=== PATIENT | female | born 1945 | race Caucasian/White ===

== ENCOUNTER 2018-03-26 19:43 | Inpatient (IN) | payer OTHER ==
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
[2018-03-26 23:12] LABS: PLATELET COUNT 329 10^3/uL (150-400)
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
--- NOTE | 2018-03-27 11:03 | ASMTTCLDSP ---
TLC Discharge Disposition Disposition: Answers: Admit Disposition Notes: Notes: Admit 3N. Discharge Concerns/Recommendations: Notes: Pt declined and appeared unable to complete BDI/BSS questionnaires. In consultation with [facility] ED physician, Christian Bailey MD, and on-call psychiatrist, Alfa Hollis MD, both concurred that pt appears to meet 27-65 criteria requiring psychiatric hospitalization as pt appears to be gravely disabled due to a mental illness condition. Pt was given but declined to sign the 3N prohibited belongings list while in the ED. Was patient given the Answers: Yes Inpatient Behavioral Health Prohibited Belongings List while in the ED? For inpatient Alfa Hollis MD admission, the following psychiatrist agreed to accept patient for admission to Behavioral Health ([facility]): Type of Hold: Answers: M1/72-hour Hold Hold initiated by: Answers: Other Notes: [facility] Clinician Date Signed: 03/27/2018 11:02 AM Electronically Signed By:Eren Chester
[2018-03-27] MEDS ORDERED: MAGNESIUM HYDROXIDE 30 ML UDCUP PO PRN (14:40)
[2018-03-27] MEDS ORDERED: LORazepam 0.5 MG TAB PO PRN (14:40)
[2018-03-27] MEDS ORDERED: ACETAMINOPHEN 325 MG TAB PO PRN (14:40)
[2018-03-27] MEDS ORDERED: OLANZapine DISINTEGR 10 MG TAB PO PRN (14:40)
[2018-03-27] MEDS ORDERED: MAG HYDROX/AL HYDROX/SIMETH 30 ML UDCUP PO PRN (14:40)
[2018-03-27] MEDS ORDERED: OLANZapine 10 MG/2 ML VIAL ONE (16:57)
[2018-03-27] MEDS ORDERED: LORazepam 2 MG/ML INJ ONE (16:58)
[2018-03-27] MEDS: OLANZapine 10 MG/2 ML VIAL IM PRN (17:10)
[2018-03-27] MEDS: LORazepam 2 MG/ML INJ IM PRN (17:10)
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
[2018-03-28] MEDS: LORazepam 2 MG/ML INJ IM PRN (11:03)
[2018-03-28] MEDS: OLANZapine 10 MG/2 ML VIAL IM PRN (11:03)
[2018-03-28] MEDS: NICOTINE POLACRILEX 2 MG GUM B PRN ×3 (11:38→17:59)
--- NOTE | 2018-03-28 16:17 | PDMN ---
Medical Necessity Medical necessity: Pt meets IP criteria per & FOR[facility] B-004-IP; est los >2 mn for eval/tx of bipolar disorder w/recent manic episode, severe psychosis & possible schizoaffective disorder; pt on M1 hold & is a safety risk to herself & others; admit for further monitoring, safety, stabilization & med management; per H&P & order 03/27/18
--- NOTE | 2018-03-28 16:47 | PDHOSCONS ---
History and Physical - Chief Complaint Acute disorganized behavior - History of Present Illness Primary care provider: None currently, previously Dr. Altamirano Primary mental health: Patient reports that she previously had a provider in [place] HPI: 73-year-old female presents with acute disorganized behavior characterized as nonlinear, tangential thought process with associated paranoid delusions, including the patient reporting that her bones have been tapped and that she needs assistance with getting a "clean" phone. The onset of her symptoms are at least on the day prior to this presentation, duration has been persistent and fluctuating thereafter. The patient reportedly presented to the [facility] crisis center and she was placed on M1 hold after she demonstrated the aforementioned behavior. The patient was seen by emergency department staff as well as Dr. Greene, and the patient's agitation escalated and fluctuated during these encounters. The patient does endorse that she has been experiencing increased amount of stress and has reportedly increased her distress regarding her phone. She reports that she chronically has right mid abdomen discomfort, which she believes no one has been able to diagnose in the past, but she has undergone exploratory laparotomy. Any additional history is exceptionally difficult to gather from the patient, as her associations are loose, her thought process is difficult to follow, and the patient verbalizes stream of consciousness which does not permit her regular redirection. History Information - Allergies/Home Medication List Allergies/Adverse Reactions: No Known Allergies Allergy (Unverified 03/27/18 16:59) Home Medications: Unobtainable 03/27/18 [Last Taken Unknown] I have personally reviewed and updated: family history, medical history, social history, surgical history - Past Medical History Additional medical history: Reported bipolar disease. Small-bowel obstruction and ileus. Osteoarthritis in the right knee, sees a chiropractor. Cholelithiasis. 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 - Surgical History Additional surgical history: Reported exploratory laparotomy - Family History Additional family history: Patient reports cancer diffusely throughout her family history but she is unclear whether colon cancer was a known diagnosis - Social History Smoking Status: Current every day smoker Alcohol Use: None Drug Use: None Additional social history: Patient reports that she has resided in [place] for 30 years, she attempts to eat what she considers a healthy diet which includes smoothies, fiber, coffee, salad Review of Systems Review of Systems: ROS: 10pt was reviewed & negative except for what was stated in HPI & below Neurological: Reports: other (Tangential thought process, paranoid delusions) Physical Exam Physical Exam: Temp Pulse Resp BP Pulse Ox 36.4 C 70 16 123/60 H 99 03/27/18 19:00 03/27/18 19:00 03/27/18 19:00 03/27/18 19:00 03/27/18 19:00 Constitutional: no apparent distress, not in pain, chronically ill appearing, uncomfortable (Right abdomen) Eyes: PERRL, anicteric sclera, EOMI Ears, Nose, Mouth, Throat: moist mucous membranes, hearing normal, ears appear normal, no oral mucosal ulcers Cardiovascular: regular rate and rhythym, no murmur, rub, or gallop, No edema Respiratory: no respiratory distress, no rales or rhonchi, clear to auscultation Gastrointestinal: normoactive bowel sounds, soft, non-tender abdomen, No guarding, No distension Musculoskeletal: other (Right knee with band, does not allow me to exam) Neurologic: sensation intact bilaterally, No weakness, No asterixes, No facial droop Psychiatric: agitated, poor insight, other (Tangential thought process, delusional, non linear comma flat affect) Lab Data & Imaging Review 03/26/18 20:03 03/26/18 20:03 WBC 6.69 10^3/uL (3.80-9.50) 03/26/18 20:03 RBC 4.89 10^6/uL (4.18-5.33) 03/26/18 20:03 Hgb 14.3 g/dL (12.6-16.3) 03/26/18 20:03 Hct 42.9 % (38.0-47.0) 03/26/18 20:03 MCV 87.7 fL (81.5-99.8) 03/26/18 20:03 MCH 29.2 pg (27.9-34.1) 03/26/18 20:03 MCHC 33.3 g/dL (32.4-36.7) 03/26/18 20:03 RDW 12.7 % (11.5-15.2) 03/26/18 20:03 Plt Count 329 10^3/uL (150-400) 03/26/18 20:03 MPV 9.8 fL (8.7-11.7) 03/26/18 20:03 Neut % (Auto) 40.6 % (39.3-74.2) 03/26/18 20:03 Lymph % (Auto) 52.3 % (15.0-45.0) H 03/26/18 20:03 [place] % (Auto) 5.4 % (4.5-13.0) 03/26/18 20:03 Eos % (Auto) 1.0 % (0.6-7.6) 03/26/18 20:03 Baso % (Auto) 0.6 % (0.3-1.7) 03/26/18 20:03 Nucleat RBC Rel Count 0.0 % (0.0-0.2) 03/26/18 20:03 Absolute Neuts (auto) 2.71 10^3/uL (1.70-6.50) 03/26/18 20:03 Absolute Lymphs (auto) 3.50 10^3/uL (1.00-3.00) H 03/26/18 20:03 Absolute Monos (auto) 0.36 10^3/uL (0.30-0.80) 03/26/18 20:03 Absolute Eos (auto) 0.07 10^3/uL (0.03-0.40) 03/26/18 20:03 Absolute Basos (auto) 0.04 10^3/uL (0.02-0.10) 03/26/18 20:03 Absolute Nucleated RBC 0.00 10^3/uL (0-0.01) 03/26/18 20:03 Immature Gran % 0.1 % (0.0-1.1) 03/26/18 20:03 Immature Gran # 0.01 10^3/uL (0.00-0.10) 03/26/18 20:03 Sodium 138 mEq/L (135-145) 03/26/18 20:03 Potassium 3.3 mEq/L (3.3-5.0) 03/26/18 20:03 Chloride 102 mEq/L (97-110) 03/26/18 20:03 Carbon Dioxide 25 mEq/l (22-31) 03/26/18 20:03 Anion Gap 11 mEq/L (8-16) 03/26/18 20:03 BUN 19 mg/dL (7-23) 03/26/18 20:03 Creatinine 0.6 mg/dL (0.6-1.0) 03/26/18 20:03 Estimated GFR > 60 03/26/18 20:03 Glucose 120 mg/dL (70-100) H 03/26/18 20:03 Hemoglobin A1c 6.5 % (4.0-6.0) H 03/27/18 20:03 Estim Average Glucose 140 mg/dL (68-126) H 03/27/18 20:03 Calcium 9.3 mg/dL (8.5-10.4) 03/26/18 20:03 Triglycerides 115 mg/dL (35-135) 03/27/18 20:03 Cholesterol 214 mg/dL (140-220) 03/27/18 20:03 Cholesterol Risk Factr 0.6 (0.2-1.0) 03/27/18 20:03 LDL Cholesterol, Calc 129 mg/dL (80-100) H 03/27/18 20:03 LDL Risk Factor 0.8 (0.2-1.0) 03/27/18 20:03 VLDL Cholesterol 23 mg/dL (8-25) 03/27/18 20:03 Non-HDL Cholesterol 152 mg/dL (90-129) H 03/27/18 20:03 HDL Cholesterol 62 mg/dL (40-85) 03/27/18 20:03 LDL/HDL Ratio 2.08 RATIO (1.00-3.22) 03/27/18 20:03 Cholesterol/HDL Ratio 3.45 RATIO (1.00-4.44) 03/27/18 20:03 Urine Color YELLOW 03/26/18 22:40 Urine Appearance HAZY 03/26/18 22:40 Urine pH 7.0 (5.0-7.5) 03/26/18 22:40 Ur Specific [place] 1.014 (1.002-1.030) 03/26/18 22:40 Urine Protein NEGATIVE (NEGATIVE) 03/26/18 22:40 Urine Ketones NEGATIVE (NEGATIVE) 03/26/18 22:40 Urine Blood NEGATIVE (NEGATIVE) 03/26/18 22:40 Urine Nitrate NEGATIVE (NEGATIVE) 03/26/18 22:40 Urine Bilirubin NEGATIVE (NEGATIVE) 03/26/18 22:40 Urine Urobilinogen NEGATIVE EU (0.2-1.0) 03/26/18 22:40 Ur Leukocyte Esterase 1+ (NEGATIVE) H 03/26/18 22:40 Urine RBC 1-3 /hpf (0-3) 03/26/18 22:40 Urine WBC 1-3 /hpf (0-3) 03/26/18 22:40 Ur Epithelial Cells TRACE /lpf (NONE-1+) 03/26/18 22:40 Amorphous Sediment PRESENT /hpf (NONE-1+) 03/26/18 22:40 Urine Bacteria 1+ /hpf (NONE SEEN) H 03/26/18 22:40 Urine Glucose NEGATIVE (NEGATIVE) 03/26/18 22:40 Urine Opiates Screen NEGATIVE (NEGATIVE) 03/26/18 22:40 Urine Barbiturates NEGATIVE (NEGATIVE) 03/26/18 22:40 Ur Phencyclidine Scrn NEGATIVE (NEGATIVE) 03/26/18 22:40 Ur Amphetamine Screen NEGATIVE (NEGATIVE) 03/26/18 22:40 U Benzodiazepines Scrn NEGATIVE (NEGATIVE) 03/26/18 22:40 [employer] < 0.2 mEq/L (0.6-1.2) L 03/26/18 20:03 Urine Cocaine Screen NEGATIVE (NEGATIVE) 03/26/18 22:40 U Marijuana (THC) Screen NEGATIVE (NEGATIVE) 03/26/18 22:40 Ethyl Alcohol < 10 mg/dL (0-10) 03/26/18 20:03 Assessment & Plan Assessment: 73-year-old female presenting with grave disability secondary to paranoid delusions Plan: 1. Paranoid delusions. Acute, reviewed outside records including 03/26/18 emergency department report by Madan Bustos, emergency department provider, he reports that patient was placed on M1 hold after presentation from the crisis Center -defer workup, diagnosis, treatment primary mental health team -of note, patient is exceptionally difficult to retrieve a medical history from or provide a thorough examination of secondary to her active mental health issue and if additional medical issues are uncovered as the patient becomes more linear, please contact the hospitalist service so that we can be of more assistance 2. Diabetes mellitus type 2. Hemoglobin A1c 6.5%, patient has diagnosis of diabetes but she is unaware of this -would recommend holding on initiating metformin which can exacerbate abdominal symptoms, as the patient clearly perseverates on her chronic abdominal symptoms and it may be difficult to delineate any acute once from her chronic complaints , particularly since she is a new patient on this unit -I would recommend the patient have established outpatient primary care after she is stabilized from a mental standpoint where she can be evaluated for initiation of metformin -given patient's LDL of 129, a statin may also be a beneficial for primary CAD prevention, but at the present time, the patient is so destabilize from a mental standpoint that initiating another medication to which she will most likely not adhere is probably of low value, and recommend that she have this issue readdressed when she establishes primary care -patient will most likely benefit from aspirin 81 mg for primary CAD prevention as well, but given her aforementioned issues, would recommend holding on this until she follows up as well 3. Reported diagnosis of lupus. Potentially chronic, patient currently has no evidence of nephritis, no clearly visible physical exam evidence of active disease, although the patient does not permit me to do a more thorough physical exam -if additional issues uncovered during this hospitalization, please reconsult with the hospitalist service otherwise recommend that she readdress this is a potential chronic issue with her new outpatient primary care provider -once she stabilizes psychiatrically, if patient is able to provide the name and contact of her previous telecommunications line installer for she received this diagnosis, the very helpful Hospital [facility] will sign off on this patient, please contact through if further assistance is required.
--- NOTE | 2018-03-28 17:18 | SOAPPROG ---
SOAP Progress Note Assessment/Plan: Assessment: Plan: 03/28/18 17:18 Mood: Pt remains manic and psychotic. Will continue E-meds due to severity of ongoing agitation. Will start scheduled Zyprexa at HS. Subjective: Pt seen on numerous occasions in the milieu today. She interrogated me re: my educational hx and then told me I am not qualified to be a doctor or treat her. She continues to sit in day room and talk loudly to herself and others in general. Themes are antagonistic and critical of staff. She continues to repeat out loud that she doesn't have Bipolar illness and doesn't want any medications. She required E-meds yesterday and then again this morning for these agitated and agitating behaviors. She responded well to Zyprexa and Ativan. Objective: Vital Signs Temp Pulse Resp BP Pulse Ox 36.4 C 70 16 123/60 H 99 03/27/18 19:00 03/27/18 19:00 03/27/18 19:00 03/27/18 19:00 03/27/18 19:00 - Time Spent With Patient Time Spent With Patient: 25" ICD10 Worksheet Patient Problems: Problems Problem Status Onset Encounter for medical clearance for patient hold Acute
[2018-03-28] MEDS ORDERED: LORazepam 2 MG/ML INJ IM PRN (17:19)
[2018-03-28] MEDS ORDERED: OLANZapine 10 MG/2 ML VIAL IM PRN (17:19)
[2018-03-28] MEDS ORDERED: OLANZapine DISINTEGR 10 MG TAB PO SCH (21:00)
[2018-03-29] MEDS: NICOTINE POLACRILEX 2 MG GUM B PRN (14:40)
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
--- NOTE | 2018-03-29 18:30 | SOAPPROG ---
SOAP Progress Note Assessment/Plan: Assessment: Plan: 03/28/18 17:18 Mood: Pt remains manic and psychotic. Will continue E-meds due to severity of ongoing agitation. Will start scheduled Zyprexa at HS. 03/29/18 18:30 Mood: Pt is much improved. Will proceed as before, convert to voluntary. Subjective: Pt seen, discussed with staff. Reports feeling "frustrated and upset that you don't know what you're doing and you can't understand my special and unique needs." She demanded "at least forty minutes" of my time to which I offered 20 minutes. We ultimately talked for 50" but were able to establish an alliance based on: her being able to sign in voluntary, decreasing the Zyprexa to 5mg and allowing PRN lorazepam. I agreed to help her fax some information for a new lease. Objective: Vital Signs Temp Pulse Resp BP Pulse Ox 36.4 C 64 16 125/57 H 96 03/29/18 06:00 03/29/18 06:00 03/29/18 06:00 03/29/18 06:00 03/29/18 06:00 - Time Spent With Patient Time Spent With Patient: 55" ICD10 Worksheet Patient Problems: Problems Problem Status Onset Encounter for medical clearance for patient hold Acute
[2018-03-29] MEDS: OLANZapine DISINTEGR 5 MG TAB PO SCH ×2 (22:09→22:19)
[2018-03-30 07:07] VITALS: BP 189/76
[2018-03-30] MEDS: NICOTINE POLACRILEX 2 MG GUM B PRN (09:51)
--- NOTE | 2018-03-30 13:39 | BDS ---
[f rep st] BEHAVIORAL HEALTH DISCHARGE SUMMARY REASON FOR ADMISSION: Patient is a 73-year-old female who was admitted from the emergency department. She presented to the walk-in clinic through [facility], was agitated. She told them that she was bipolar, needed help, but then was refusing treatment. She was evaluated by the victim's advocate through [facility]. She was a very unreliable historian, very tangential, loose, disorganized, gave a very unclear history of course of events, but the walk-in clinic noted that the patient was paranoid, delusional. She told them that "doctors just want to steal my money." She also told them that she thought that people were tapping her phone and she does not feel safe. She was quite disruptive. They called the [facility] who transported the patient to the ED where she was evaluated by JOSE and admitted to the inpatient behavioral health unit. ADMITTING DIAGNOSES: 1. Bipolar disorder, most recent episode manic, severe with psychosis, rule out schizoaffective disorder, bipolar type. 2. Possible homelessness, chronic illness, currently untreated. PHYSICAL EXAMINATION: The admitting physical examination was done by Dr. Srikanth Terrazas. Please see his H and P for more details. There were no acute physical findings, although the patient was very resistant to allowing Dr. Terrazas to evaluate her and was not very forthcoming with his questions. ADMISSION LABS: Done in the [facility] ED. Her white cell count was 6.69, hemoglobin 14.3, hematocrit 42.9, platelet count 329. Sodium was 138, potassium 3.3, chloride 102, BUN 19, creatinine 0.6, glucose was 120. Hemoglobin A1c was elevated at 6.5 kg. Calcium was 9.3, triglycerides were 115 , cholesterol was 214, LDL cholesterol was elevated at 129, non-HDL cholesterol was elevated at 152, HDL cholesterol was 62. Her urinalysis was positive for 1 + urine bacteria and 1+ leukocyte esterase. Her urine culture came back positive for 5 different colony types, which were all determined to be normal urinary tract and skin murphy. Her urine drug screen was negative for all drugs of abuse. Ethyl alcohol was undetected. [place] level was also undetected. HOSPITAL COURSE: The patient was admitted and she was given emergency eMeds because she was severely agitated and physically aggressive. On 03/28/2018, Dr. Hollis saw the patient and decided to start scheduled Zyprexa 10 mg p.o. at bedtime with a p.r.n. 10 mg q.6 hours p.r.n. backup as needed for agitation and psychosis. When he met with her on the inpatient unit, patient was very argumentative. She was talking rapidly, had pressured speech, is difficult to interrupt the patient. The patient would talk very loudly and talk over Dr. Hollis. She also insisted that Dr. Hollis was not "qualified to be a doctor" and said that she did not want him to treat her. She was observed in the day room talking loudly to herself. She was antagonistic and critical towards the staff. She repeated multiple times that she does not have bipolar illness and does not want to take medication. She required eMeds on 2 occasions, on the evening of 03/27 and on the morning of 03/28/2018. When Dr. Hollis saw the patient on 03/29/2018, she was much improved. She had no more aggressive outbursts or episodes of agitation. She was much calmer, more cooperative. She had an easier time interacting with staff and peers on the unit. She was able to carry on a conversation in a normal tone of voice, even though at times she would get quite adamant in her speech. She never became belligerent and was not yelling and screaming like she did when she first came to the hospital. According to Dr. Hollis's note, the patient said that she felt "frustrated and upset that you do not know what you are doing and you cannot understand my special and unique needs." Dr. Hollis said that after a 50-minute conversation, that he felt like that he was able to establish a good alliance with the patient. She agreed that she would sign in voluntarily and continue to receive medication treatment, but that she felt that her dose of Zyprexa was too high and she wanted to be on 5 mg of Zyprexa. She requested some help with housing while she was here on the unit. She said that she was looking to sign a new lease and she wanted assistance with faxing information to find a new place to live. This MD met with the patient in treatment planning rounds with the rest of the treatment team and the unit staff on 03/30/2018. The patient presented very similar to the way she engaged with Dr. Hollis, but she was more cooperative with the interview. She had a very thick composition book that had been completely filled and she said she wanted to read it and then discuss what was in it. When this MD tried to engage the patient to focus on her immediate treatment needs, she was initially pretty argumentative, wanted to know what this MD's credentials were, said that I did not know how to treat her properly and that I was not aware that she was "not like other patients" and that her situation was "very unique." Patient stated that she did not want to be on any psychiatric medications. After a 50-minute discussion with Dr. Hollis in which she agreed to take 5 mg of Zyprexa, the nursing staff indicated that the patient had refused her evening dose of Zyprexa last night. When this MD asked the patient about it on day of discharge, patient said that she did not want to be on any psychiatric medication. She said "I do not need those meds." She said what she wanted to do was to get help for "my lupus." This MD spent a great deal of time prior to discharge, talking to the patient about getting ongoing mental health services and primary care services. This MD talked to the patient about accessing care through [facility]. The assistant child care teacher on the unit, Rievra, as well as the RN and MD spent a great deal of time answering the patient's questions about services in [facility] and talked to the patient about the location of the walk-in clinic for [facility] and also the nearest location for [facility]. The patient had questions about what kind of care she could get at those facilities. This MD went into detail about how the most appropriate way to help treat her physical problems was to establish ongoing care with a primary care physician who could do lab work, who could prescribe medications, could monitor and evaluate the patient and refer her for specialty care, if that is what she needed. The patient insisted, "I don't want that. I'm not going to do that. I do not trust the system." MD pointed out that if she does have concerns about lupus or about her physical well-being, that a primary care physician would be the person best able to help her. This MD did talk to the patient briefly about the hospitalist's note. Dr. Terrazas noted the fact that the patient had an elevated hemoglobin A1c of 6.5, but he recommended against starting metformin. He said that metformin was likely to exacerbate abdominal symptoms and the patient was clearly perseverating on chronic abdominal pain and he stated that the best recommendation would be for her to "establish outpatient primary care after she is stabilized where she can be evaluated for initiation of metformin." Dr. Terrazas also noted the patient's elevated LDL of 129, indicated that a statin might be beneficial for the patient for primary coronary artery disease prevention, but at the present time, "the patient is so destabilized that initiating another medication to which she will most likely not adhere is probably of low value and recommended that she have this issue readdressed when she stabilizes with her primary care provider." Dr. Terrazas also noted that the patient was likely to benefit from a baby aspirin for coronary artery disease prevention and he said "would recommend holding on this until she follows up with the primary care doctor as well." Dr. Terrazas did address the patient's complaint that she had chronic lupus. He noted that "the patient currently has no evidence of nephritis. No clearly visible physical exam evidence of active disease, although the patient does not permit me to do a more thorough physical examination." He said that the patient should "readdress this as a potential chronic issue with her new outpatient primary care provider." This psychiatrist on day of discharge went over Dr. Terrazas's recommendation with the patient and strongly encouraged her to seek primary care services through [facility] and went over the location of the clinics with the patient and all that information was provided to the patient by the assistant child care teacher, Rivera, prior to discharge. When patient was seen by this MD on day of discharge, she denied any acute symptoms of mental illness. She did not have signs or evidence of omar. She also did not exhibit any acute symptoms of psychosis. She no longer had the paranoid delusions that she presented with in the walk-in clinic and in the ED. She denied feeling sad, helpless, hopeless, worthless or anxious. She denied having any panic attacks. She denied having any thoughts, plans or intents to hurt herself or anyone else. CONDITION AT DISCHARGE: Patient was stable. Her affect was irritable, but appropriate. She was voicing no thoughts of suicide. She did not display any signs of psychosis. She did not show any signs or evidence of omar at time of discharge. DISCHARGE MEDICATIONS: The patient refused to take any medications during her hospitalization. Given the fact that she was not a danger to self, danger to others, or gravely disabled, she could not be kept in the hospital involuntarily and so she was changed to a voluntary status by Dr. Hollis on . On 03/30, she insisted upon leaving the hospital, said that she was not benefitting from care here. She was refusing to take medications. Despite Dr. Hollis, this , as well as the entire treatment staff emphasizing the importance of getting good followup care, the patient was adamantly against seeking outpatient services because she said "I don't believe in the system. I' m not going to do that." Despite her resistance and reluctance, the entire treatment staff including cinthya SUMMERS, the RN and the assistant child care teacher, reviewed services that are available including the walk-in clinic for [facility], as well as the [facility] for primary care services. This information was related to the patient. She expressed verbal understanding of this information and she was provided with written discharge instructions, including the locations where she could access care. DISCHARGE DIAGNOSES: 1. Bipolar disorder, most recent episode manic, severe with psychotic features , resolved. 2. Patient states that she lives in [facility], that she has an apartment. She states that she has a vehicle at the [facility]. She was given a taxi voucher and took all of her belongings by taxi to milk pickup driver her car and she said that she was going to go back to her apartment at [facility]. 3. The patient has a history of noncompliance and certainly expressed resistance and reluctance to take medication or to seek outpatient services, even though the importance of this was emphasized multiple times by the entire treatment team prior to the patient's discharge. It does seem like the patient is at risk for coronary artery disease, as well as diabetes and possible dyslipidemia. It was recommended that she follow up with a primary care physician to address her coronary risk factors, as well as to possibly initiate treatment with metformin, a statin, aspirin, and possibly a followup with a site administrator. DISPOSITION: Patient was discharged to her own residence, which she says is at [facility] in [place]. She was given information to follow up with the walk -in Clinic for [facility] and [facility] for primary care services. LEGAL COURSE: The patient was discharged on voluntary. She was signed in voluntary upon the expiration of her mental health hold on 03/29/2018. /[id number]/MODL MTDD
== END 2018-03-30 11:50 | disposition home or self-care (01) | DRG 885 ==
LOC: BBEH 03-27 12:25
PROVIDERS: ADMIT Psychiatry & Neurology Psychiatry; ATTEND Psychiatry & Neurology Psychiatry
DX: F31.2 Bipolar disorder, current episode manic severe with psychotic features (principal); E11.9 Type 2 diabetes mellitus without complications; Z66 Do not resuscitate
CPT/HCPCS: 80305; G0480; J2060

== ENCOUNTER 2018-07-04 11:47 | Inpatient (IN) | payer OTHER ==
--- NOTE | 2018-07-04 12:23 | EDPHY ---
General - History Smoking Status: Former smoker Time Seen by Provider: 07/04/18 12:06 Narrative: CHIEF COMPLAINT: Anxious, suicidal HISTORY OF PRESENT ILLNESS: Patient presents by private vehicle with complaints of suicidal thoughts, feeling anxious and hopeless over the past few days. She presents with a social services designee from the day Center who was concern for her. The patient reportedly called the social services designee expressing her thoughts of self-harm and hopelessness, thus she brings her here. Patient says she has felt very anxious , hopeless and "I just do not want to live." She has documented bipolar disorder and states that she has not followed up with anyone and 3-4 months, and she states that she is not taking any medication despite recommendations. She has had no chest pain shortness of breath. No fever. No headache. She does reports some overall pain from recent moving. She contributes the change in her symptoms with the past 2 days to increasing stress from multiple people knocking on the doors, moving, and not following up with her physician, and tried to quit smoking. No other associated complaints or modifying factors PSYCHIATRIC DIAGNOSES: Bipolar disorder, anxiety PRIOR PSYCHIATRIC EVALUATIONS: Multiple M1/DETAINER: Dr. Drew Rangel, 12:25 p.m. Today REVIEW OF SYSTEMS: Ten systems reviewed and are negative unless otherwise noted in the HPI EXAMINATION General Appearance: Alert, no distress, unkempt Head: normocephalic, atraumatic Eyes: Pupils equal and round, no conjunctival pallor or injection ENT, Mouth: Mucous membranes moist Neck: Normal inspection, supple, non-tender Respiratory: Lungs are clear to auscultation Cardiovascular: Regular rate and rhythm Gastrointestinal: Abdomen is soft and nontender Back: non-tender, no bony abnormalities Neurological: A&O, nonfocal, light sensory symmetric upper lower extremities. Skin: Warm and dry, no rash Extremities: Nontender, no pedal edema. Range of motion of the upper lower extremities symmetric. Psychiatric: Pressured speech, flight of ideas and tangential thought. Admits to suicidal ideation but will not discuss her plan. Exhibiting manic behavior DIFFERENTIAL DIAGNOSES: Including but not limited to manic episode, bipolar disorder, suicidal ideation , grave disability, depression, anxiety MDM: 12:20 p.m. Bipolar disorder patient with no follow-up or medications since a recent evaluation March. She exhibits flight of ideas, pressured speech, tangential thought and admits to suicidal ideation. She will not disclose her plan. She does appear to be gravely disabled and suicidal, thus she has been placed on an M1 hold. I have also ordered Ativan. Laboratory studies will be obtained. She is aware this hold. 1:55 p.m. Patient has been medically cleared and evaluated by mental health professional. She has reportedly been accepted to [facility]. The accepting physician is Dr. Hollis. She will be transferred in stable condition. She remains cooperative. Feeling much better after the Ativan. SUPERVISION: Patient was evaluated and examined in conjunction with my secondary supervising physician as documented. We have both examined the patient. (Madan Bustos) Medical Decision Making: PHYSICIAN DOCUMENTATION: The patient was evaluated and managed by the Physician Refractory Technician and myself. I have reviewed the chart and agree with the findings and plan of care as documented. In addition, I examined the patient myself at 1325. History confirmed as history of bipolar disorder, suicidal thoughts. Physical findings as follows: Patient is very tangential in her thought process during my interview, confirms severe depression. Placed on a mental health hold by myself in consultation with my PA for suicidal ideation and severe depression. The patient will be transferred to [facility] for inpatient psychiatric hospital bed not available at this facility, in stable condition; accepting physician is Dr. Alfa Hollis. EMTALA form completed. I am the secondary supervising physician. (Drew Rangel) - Objective Vital Signs: Initial Vital Signs Temperature (C) 98.1 F 07/04/18 11:55 Heart Rate 72 07/04/18 11:55 Respiratory Rate 16 07/04/18 11:55 Blood Pressure 228/215 H 07/04/18 11:55 O2 Sat (%) 96 07/04/18 11:55 O2 Delivery Mode Room Air Allergies/Adverse Reactions: No Known Allergies Allergy (Unverified 03/27/18 16:59) Home Medications: Medication Instructions Recorded NK [No Known Home Meds] 07/04/18 Laboratory Results: Laboratory Results 07/04/18 12:30 07/04/18 12:30 07/04/18 07/04/18 07/04/18 12:30 12:30 12:30 WBC 5.82 10^3/uL 10^3/uL (3.80-9.50) RBC 4.61 10^6/uL 10^6/uL (4.18-5.33) Hgb 13.4 g/dL g/dL (12.6-16.3) Hct 39.0 % % (38.0-47.0) MCV 84.6 fL fL (81.5-99.8) MCH 29.1 pg pg (27.9-34.1) MCHC 34.4 g/dL g/dL (32.4-36.7) RDW 12.6 % % (11.5-15.2) Plt Count 296 10^3/uL 10^3/uL (150-400) MPV 9.3 fL fL (8.7-11.7) Neut % (Auto) 45.9 % % (39.3-74.2) Lymph % (Auto) 47.4 % H % (15.0-45.0) [place] % (Auto) 5.3 % % (4.5-13.0) Eos % (Auto) 0.7 % % (0.6-7.6) Baso % (Auto) 0.7 % % (0.3-1.7) Nucleat RBC Rel Count 0.0 % % (0.0-0.2) Absolute Neuts (auto) 2.67 10^3/uL 10^3/uL (1.70-6.50) Absolute Lymphs (auto) 2.76 10^3/uL 10^3/uL (1.00-3.00) Absolute Monos (auto) 0.31 10^3/uL 10^3/uL (0.30-0.80) Absolute Eos (auto) 0.04 10^3/uL 10^3/uL (0.03-0.40) Absolute Basos (auto) 0.04 10^3/uL 10^3/uL (0.02-0.10) Absolute Nucleated RBC 0.00 10^3/uL 10^3/uL (0-0.01) Immature Gran % 0.0 % % (0.0-1.1) Immature Gran # 0.00 10^3/uL 10^3/uL (0.00-0.10) Sodium 140 mEq/L mEq/L (135-145) Potassium 3.8 mEq/L mEq/L (3.3-5.0) Chloride 104 mEq/L mEq/L (97-110) Carbon Dioxide 25 mEq/l mEq/l (22-31) Anion Gap 11 mEq/L mEq/L (6-14) BUN 14 mg/dL mg/dL (7-23) Creatinine 0.7 mg/dL mg/dL (0.6-1.0) Estimated GFR > 60 Glucose 121 mg/dL H mg/dL (70-100) Calcium 9.7 mg/dL mg/dL (8.5-10.4) TSH Pending Ethyl Alcohol < 10 mg/dL mg/dL (0-10) Medications Given: Discontinued Medications Lorazepam (Ativan Injection) 1 mg IVP EDNOW ONE Stop: 07/04/18 12:27 Last Admin: 07/04/18 12:43 Dose: Not Given Lorazepam (Ativan) 1 mg PO EDNOW ONE Stop: 07/04/18 12:33 Last Admin: 07/04/18 12:41 Dose: 1 mg Departure - Departure Disposition: [facility] IP Clinical Impression: Manic bipolar I disorder, Suicidal ideation Condition: Good Referrals: NONE *PRIMARY CARE P,. [Primary Care Provider] - As per Instructions
[2018-07-04] MEDS ORDERED: LORazepam 2 MG/ML INJ IVP ONE (12:26)
[2018-07-04] MEDS ORDERED: LORazepam 1 MG TAB PO ONE (12:32)
[2018-07-04 12:41] LABS: PLATELET COUNT 296 10^3/uL (150-400)
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
--- NOTE | 2018-07-04 14:15 | ASMTTCLDSP ---
TLC Discharge Disposition Disposition: Answers: Admit Disposition Notes: Notes: Admit 3N. Discharge Concerns/Recommendations: Notes: In consultation with [facility] ED physician, Drew Rangel MD and on-call psychiatrist, Alfa Hollis MD, both concurred that pt appears to meet 27-65 criteria requiring psychiatric hospitalization as pt appears to be at risk of harm to self/gravely disabled due to a mental illness condition. Pt was given but declined to sign the 3N prohibited belongings list while in the ED. Was patient given the Answers: Yes Inpatient Behavioral Health Prohibited Belongings List while in the ED? For inpatient Alfa Hollis MD admission, the following psychiatrist agreed to accept patient for admission to Behavioral Health ([facility]): Type of Hold: Answers: M1/72-hour Hold Hold initiated by: Answers: ED Physician Date Signed: 07/04/2018 02:14 PM Electronically Signed By:Eren Chester
--- NOTE | 2018-07-04 15:36 | PDCONSULT ---
Addendum entered and electronically signed by Dot Orozco NP 07/04/18 16:00 : Elevated Blood pressure will be addressed with Lisinopril PO QD. Asymptomatic. Original Note: <Dot Orozco - Last Filed: 07/04/18 15:08> Real Estate Asset Manager Note: CC: "Not in a good place right now." HPI: 73 y/o female presents to the ED because "I don't feel right, I'm not in a good place right now." Pt is unreliable, tangential speech. She reports recently moving from [place] to an apartment in [place]. In the last 2 weeks, she felt her "omar" get worse because of stress, feeling claustrophobic in her new apartment, and moving furniture. She doesn't think she has a mental problem but knows she can get in to see a doctor faster this way versus scheduling an outpatient appointment. She doesn't take any medications because she is allergic to "everything." At one point, she said she was given medication for her bipolar disease but stopped taking it because it caused heart palpitations. She denies fevers/chills, N/V, diarrhea, chest pains, SOB, or lightheadedness. Allergies: Unknown and patient is an unreliable source Home Medications: None per pt Past Medical/Surgical History: Lupus, hypothyroid, gallstones Family History: Father of CVA, Mother of met cancer, Brother of myocardial infarct Social History[facility] Denies illicit drug use. Started smoking cigarettes at age 7, one pack a day. This escalated to 3 packs/day due to stress. She recently stopped smoking cigarettes one week prior. Utilizes nicotine gum. No longer drinks alcohol. Reports started drinking "in infancy" because it was her "family culture" and reports "I drank a lot. It was bad," and she stopped at age [age] years old while living in [place]. ROS: 10 pt system reviewed and marked negative unless noted in HPI. Lab Data reviewed: unremarkable. TSH pending. Constitutional: mentally not well EENMT: neg Cardiac: neg Respiratory: neg Gastrointestinal: neg Genitourinary: neg Muscoloskeletal: neg Skin: neg Neurological: neg Hematologic/Lymphatic: neg Immunologic/Allergy: noted in HPI Physical Exam Constitutional: well-nourished appearing, pleasant, cooperative, tangential speech EENMT: PERRL, anicteric sclera, EOMI. Moist mucous membranes, hearing normal Cardiac: S1, S2 regular. No murmur, rub or gallop Respiratory: Diminished bilateral bases, clear Gastrointestinal: Active bowel sounds, soft non-tender abdomen Genitourinary: no bladder fullness, no bladder tenderness Muscoloskeletal: full muscle strength, no muscle tenderness Skin: warm, normal color, no rashes or abrasions Neurological: Sensation intact bilaterally, CN II-XII intact Hematologic/Lymphatic: no cervical LAD, no supraclavicular LAD Peripheral Pulses: BUE Radial 2+. BLE pedal pulse 2+ Psychiatric: Thought process not linear, anxious Assessment and Plan 73 y/o female with suspected bipolar disease with suicidal ideation is seeking psychiatric help. Plan: The pt has no medical necessities that would withhold her from receiving care with behavioral health. She will transfer to behavioral health. <Darren Jenkins - Last Filed: 07/04/18 19:14> Real Estate Asset Manager Note: Patient seen and evaluated separately from CARLOS Orozco, please see separate note for further details. Agree with above assesment and plan as outlined.
[2018-07-04] MEDS ORDERED: LISINOPRIL 20 MG TAB PO SCH (16:15)
[2018-07-04] MEDS ORDERED: ACETAMINOPHEN 325 MG TAB PO PRN (17:44)
[2018-07-04] MEDS ORDERED: MAGNESIUM HYDROXIDE 30 ML UDCUP PO PRN (17:44)
[2018-07-04] MEDS ORDERED: MAG HYDROX/AL HYDROX/SIMETH 30 ML UDCUP PO PRN (17:44)
[2018-07-04] MEDS ORDERED: LORazepam 0.5 MG TAB PO PRN (17:44)
--- NOTE | 2018-07-04 19:18 | HOSPPROG ---
Hospitalist Progress Note Assessment/Plan: Please see oracle database consultant note from CARLOS Orozco for further details. Patient is a 73 yo F with PMH of bipolar d/o presenting with suicidal thoughts. # SI: patient to be admitted to the mental health unit on [facility]. No medical indication to defer any preferred treatment at this point. Patient does agree to refrain from self harm while in house. # diabetes: patient with recent Hgb A1c of 6.5 meeting criteria for dx of DM2. She has not been compliant with medications in the past. Will ideally stabilize on psych unit where she will be able to f/u for ongoing mgmt of DM. # lupus: per patient report, no s/s consistent with this dx at this time, recommend psychiatric stabilization and then OP f/u with rheum # Thank you for this consultation. Medicine will be available peripherally should questions arise during this hospitalization Objective: Vital Signs Temp Pulse Resp BP Pulse Ox 36.9 C 69 16 168/99 H 98 07/04/18 14:15 07/04/18 14:15 07/04/18 14:15 07/04/18 14:15 07/04/18 14:15 ICD10 Worksheet Patient Problems: Problems Problem Status Onset Encounter for medical clearance for patient hold Acute Manic bipolar I disorder Acute Suicidal ideation Acute
[2018-07-04] MEDS: OLANZapine DISINTEGR 5 MG TAB PO SCH (21:02)
[2018-07-04] MEDS: busPIRone 5 MG TAB PO SCH (21:40)
[2018-07-05] MEDS: busPIRone 5 MG TAB PO SCH ×3 (08:42→22:07)
[2018-07-05] MEDS: LISINOPRIL 10 MG TAB PO SCH (08:42)
--- NOTE | 2018-07-05 09:43 | PDMN ---
Medical Necessity Medical necessity: Pt meets IP criteria per [facility] and [facility] [id number], est los >2 mn for Bipolar disorder; pt on M1 hold due to being gravely disabled, admit for further eval, safety, crisis stabilization and med management
--- NOTE | 2018-07-05 11:38 | ASMTBHMTP ---
SHAWN Master Treatment Plan Master Treatment Plan Answers: Mood Instability with for: Psychosis Date: 07/05/2018 Diagnosis on Admission: Bipolar I Disorder, current episode mixed, severe 296.53 Expected length of stay: 3-5 Days Reason for admission: Notes: Per TLC Evaluation - Pt. is a 73 year old, unemployed, disabled, female, with history of Bipolar Disorder, initially self-presented to [facility] ED on a voluntary basis with complaints of suicidal thoughts, feeling anxious and hopeless over the past few days. She presented accompanied by a social secretary from the day center who was concerned for her. The patient reportedly called the social secretary expressing her thoughts of self-harm and hopelessness. Pt. reports she has not followed up with anyone in 3-4 months and is not taking any medication despite recommendations. She attributes the change in her symptoms within the past 2 days to increasing stress from multiple people knocking on the doors, moving, and not following up with her physician, and tried to quit smoking. Pt. was placed on M1 hold by ED providers which noted "Pt. exhibits flight of ideas, pressured speech and described homelessness and suicidal thoughts. She will not discuss her plan. Documented bipolar disorder. Not taking medications". Patient's stated presenting problems: Notes: Pt. refused to participated in Master Treatment Plan meeting Patient's goals for treatment: Notes: Pt. refused to participated in Master Treatment Plan meeting Patient's strengths: Notes: Pt. refused to participated in Master Treatment Plan meeting Identify supports outside of hospital: Notes: Pt. refused to participated in Master Treatment Plan meeting Discharge criteria: Notes: Patient will demonstrate more stable mood by discharge. Initial disposition plan/considerations: Notes: Pt. refused to participated in Master Treatment Plan meeting Master Treatment Plan Required Signatures Psychiatrist signature: Answers: Psychiatrist: RN on-shift signature: Answers: RN: Patient signature: Answers: Patient: Date Signed: 07/05/2018 11:37 AM Electronically Signed By:Danna Lynne
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
--- NOTE | 2018-07-05 17:34 | BAPA ---
DATE OF SERVICE: 07/05/2018 HISTORY OF PRESENT ILLNESS: The patient is a 73-year-old female with a history of bipolar disorder and previous psychotic omar. She presented to the emergency department of her own accord r equesting evaluation and treatment for nonspecific medical issues. She had written down pages and pa ges of information in regard to her past history and wanted what she described as a "full laboratory evaluation." In my time with her today, other than asking for thyroid testing, I cannot ascertain wh at exactly it is she wanted evaluated medically. She was clearly manic and pressured and they placed her on an M1 hold, admitted her to the [facility] inpatient unit for further evaluat ion. When she arrived here, she was agitated, hostile, irritable, pressured, and this was noted to dee dee e similar to her previous states when she was admitted to this facility in March of this year. On bautista t occasion, she was extremely agitated, requiring seclusion and emergency medication, but then did mu ch better. Today, she is able to be eventually verbally redirected, though is extremely pressured an d irritable. She wants to go through a journal that she has written on every page but cannot organiz e her thinking or show me what it is she wants to show me. She repeats many stories from long ago in her life that are irrelevant, but is pressured and does not allow me to interrupt very easily. I mcgill ve asked the question, "What did you come to the hospital for?" many times during the interview and s he never was able to even begin to answer this. She would typically revert to tangential topics and then to having lupus and then to other issues unrelated to explaining why she came to the hospital. She does state that she is unwilling to take psychotropic medications at this time. I reminded her t hat she did very well with them last time and she seemed to soften, saying that she would consider th em. PAST PSYCHIATRIC HISTORY: Significant for having previously been associated with [facility] in [place] but it is unclear whether she is now. She has apparently not taken psychotropic medic ine since being in this facility at the end of March. At that time, she refused all psychotropic medi cations and was discharged without any. She states she has no current providers. Past psychiatric history largely as above. The patient states she has been "misdiagnosed" with robert garcia for many years. She states that no psychotropic medicines work for her. ALLERGIES: No known medical allergies. CURRENT MEDICATIONS: None. PAST MEDICAL HISTORY: The patient states she has been diagnosed with lupus, hypothyroidism, and gall stones in the past. SOCIAL HISTORY: The patient lives in an apartment possibly in a supported circumstance with [facility] in [place]. She reportedly lives alone and the details of her ability to supp ort herself and so forth is unknown to me at this time. She states she is originally from [place] a nd came to [place] "to do the spiritual thing." She denies any alcohol or drug use. ADMISSION LABORATORY: CBC is normal. Serum chemistries show a nonfasting glucose up at 121, total b ilirubin is up at 1.6, and a conjugated bilirubin is up at 1.2. Liver function is normal. TSH is no rmal at 2.060. Urine drug screen not completed. Alcohol is less than detectable. MENTAL STATUS EXAMINATION: Reveals an elderly female, dressed casually in scrub pants and a tank top. She displays a high level of psychomotor activity, fidgeting with numerous journals and pencils, and a food tray on which she has at least 15 paper drinking cups that are each full of a dif ferent type of liquid. She is poorly groomed, though healthy-appearing. Her affect is labile, irrit able, hostile at times, laughing at others. Her mood is described as "fine." Her thought process is tangential. Her thought content reveals paranoid, grandiose and bizarre ideations. Her speech is v oluminous, pressured, rapid. She is alert and oriented to person, place, time, and situation. Her s ensorium is clear. There is no evidence of delirium or dementia. Her intellect appears to be at charlene st average as evidenced by her fund of knowledge and vocabulary. She denies any thoughts of suicide, homicide, or violence. Her insight and judgment appear to be poor. IMPRESSION: Bipolar 1 disorder, most recent episode manic, severe, with psychosis, a lack of social supports, chronic illness, recurrent illness, medication noncompliance, possible lupus, possible hypo thyroidism. The patient is a 73-year-old female with a history of bipolar disorder. She has presented twice now in what appears to be manic and psychotic state. She is extremely agitated and hostile, as she was before, and she responded appropriately to medications in the past. She did, however, begin to refuse them during her last stay and refuses them now. It is unclear what course of action we nancy l be able to take with that, as she has consistently refused all medicines offered to her thus far. We will monitor her behaviors and consider emergency medicines if needed. We will also collaborate w [facility] and work with them on a safe discharge plan. ESTIMATED LENGTH OF STAY: 5-7 days. /[id number]/MODL
[2018-07-05] MEDS: OLANZapine DISINTEGR 5 MG TAB PO SCH (22:07)
[2018-07-06] MEDS ORDERED: OLANZapine 10 MG/2 ML VIAL IM ONE (10:41)
[2018-07-06] MEDS: LISINOPRIL 10 MG TAB PO SCH (11:23)
[2018-07-06] MEDS: busPIRone 5 MG TAB PO SCH (11:55)
--- NOTE | 2018-07-06 15:05 | ASMTCMCOM ---
CM Note CM Note Notes: CC attempted to meet with pt. Pt. stated CC is not helping her and yelled at CC. CC left the conversation. Pt. has been observed being verbally abusive to all staff. Pt. refused all of her medications. Pt. attending a treatment team meeting and was asked to leave. Pt. stated she doesn't live on [facility], stating that is the other person with her identity. Pt. stated she lives at [address] [place] [address]. Pt. refused to sign her behavioral plan today. Staff report pt. sleeping 3 hours. Date Signed: 07/06/2018 03:04 PM Electronically Signed By:Danna Lynne
--- NOTE | 2018-07-06 15:24 | SOAPPROG ---
SOAP Progress Note Assessment/Plan: Assessment: Plan: 07/06/18 15:25 Mood/psychosis: Remains agitated, verbally threatening, disruptive to milieu. Will continue to offer PO Zyprexa and IM if she requests it. Will place on [facility] and consider involuntary med request though she has responded well in the past to only a few doses of medication with marked improvement in behaviors. Subjective: Pt seen, discussed with staff, interviewed in Treatment Team meeting. Refusing all meds. More disruptive today, yelling in milieu, verbally aggressive to staff and fellow patients. She enters Treatment Team meeting with ear plugs, refusing to remove them, eventually removes one. She is argumentative, insulting staff and refusing to ask questions. Meeting terminated due to her level of agitation. She refuses to leave the room and then begins shouting, "Just shoot me up!" Continues this for approximately ten minutes in the group room and the milieu. She repeatedly asked myself and staff to give her an injection. Zyprexa was ordered and she took it voluntarily. Notably calmer afterward. Objective: Vital Signs Temp Pulse Resp BP Pulse Ox 36.9 C 62 16 136/68 H 98 07/04/18 14:15 07/05/18 06:00 07/05/18 06:00 07/05/18 06:00 07/05/18 06:00 - Time Spent With Patient Time Spent With Patient: 35" ICD10 Worksheet Patient Problems: Problems Problem Status Onset Manic bipolar I disorder Acute Suicidal ideation Acute Encounter for medical clearance for patient hold Acute
[2018-07-06] MEDS: OLANZapine DISINTEGR 5 MG TAB PO SCH (21:31)
[2018-07-07] MEDS: LISINOPRIL 10 MG TAB PO SCH (10:10)
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
[2018-07-07] MEDS: NICOTINE POLACRILEX 2 MG GUM B PRN (15:12)
--- NOTE | 2018-07-07 16:19 | SOAPPROG ---
SOAP Progress Note Assessment/Plan: Assessment: Per Dr. Hollis's note: Mood/psychosis: Remains agitated, verbally threatening, disruptive to milieu. Will continue to offer PO Zyprexa and IM if she requests it. Will place on [facility] and consider involuntary med request though she has responded well in the past to only a few doses of medication with marked improvement in behaviors. Subjective: Pt seen, discussed with staff, interviewed in Treatment Team meeting. Refusing all meds. More disruptive today, yelling in milieu, verbally aggressive to staff and fellow patients. She enters Treatment Team meeting with ear plugs, refusing to remove them, eventually removes one. She is argumentative, insulting staff and refusing to ask questions. Meeting terminated due to her level of agitation. She refuses to leave the room and then begins shouting, "Just shoot me up!" Continues this for approximately ten minutes in the group room and the milieu. She repeatedly asked myself and staff to give her an injection. Zyprexa was ordered and she took it voluntarily. Notably calmer afterward. Current Plan: 07/07/18 16:15 1. Patient calmer yesterday after IM Zyprexa, but has been labile, erratic, irritable and hostile today. 2. She refused PO Zyprexa at HS last night, and refuses all PRN meds today for agitation/psychosis. 3. Patient had syncopal episode last night that seemed to accompany indigestion and difficulty having a bowel movement. Today VSS, no repeat of SOB, hypotension , dizziness. 4. Sleeping and eating appropriately. Subjective: Patient spoke to assistant district attorney in her room this AM. Afterwards, patient was more labile and irritable to staff. MD witnessed patient make angry demands of staff and argue with staff. She told MD to "take my menu," and became angry when MD showed patient where she could leave menu to be delivered to cafeteria. Patient still presents with paranoid delusions, thinks she is being followed by "terrorists." Objective: Vital Signs Temp Pulse Resp BP Pulse Ox 36.9 C 62 16 147/66 H 98 07/04/18 14:15 07/05/18 06:00 07/05/18 06:00 07/07/18 09:07 07/05/18 06:00 MSE: Affect: Irritable Mood: Angry TP: Tangential, loose TC: Denies SI/HI, still has paranoid delusions Insight/Judgment: Impaired - Time Spent With Patient Time Spent With Patient: 15" - Pending Discharge Pending Discharge Within 24 Hours: No Pending Discharge Within 48 Hours: No ICD10 Worksheet Patient Problems: Problems Problem Status Onset Manic bipolar I disorder Acute Suicidal ideation Acute Encounter for medical clearance for patient hold Acute
[2018-07-07] MEDS: OLANZapine DISINTEGR 5 MG TAB PO SCH (20:14)
[2018-07-08] MEDS: LISINOPRIL 10 MG TAB PO SCH (09:35)
--- NOTE | 2018-07-08 16:31 | SOAPPROG ---
SOAP Progress Note Assessment/Plan: Assessment: Per Dr. Hollis's note: Mood/psychosis: Remains agitated, verbally threatening, disruptive to milieu. Will continue to offer PO Zyprexa and IM if she requests it. Will place on [facility] and consider involuntary med request though she has responded well in the past to only a few doses of medication with marked improvement in behaviors. Subjective: Pt seen, discussed with staff, interviewed in Treatment Team meeting. Refusing all meds. More disruptive today, yelling in milieu, verbally aggressive to staff and fellow patients. She enters Treatment Team meeting with ear plugs, refusing to remove them, eventually removes one. She is argumentative, insulting staff and refusing to ask questions. Meeting terminated due to her level of agitation. She refuses to leave the room and then begins shouting, "Just shoot me up!" Continues this for approximately ten minutes in the group room and the milieu. She repeatedly asked myself and staff to give her an injection. Zyprexa was ordered and she took it voluntarily. Notably calmer afterward. Current Plan: 07/07/18 16:15 1. Patient calmer yesterday after IM Zyprexa, but has been labile, erratic, irritable and hostile today. 2. She refused PO Zyprexa at HS last night, and refuses all PRN meds today for agitation/psychosis. 3. Patient had syncopal episode last night that seemed to accompany indigestion and difficulty having a bowel movement. Today VSS, no repeat of SOB, hypotension , dizziness. 4. Sleeping and eating appropriately. 07/08/18 16:27 1. Patient refused Olanzapine again last night. Refused BP meds this AM. 2. Very irritable and argumentative with MD today. Insists she shouldn't be here and won't take any meds. 3. Patient still sleeping and eating well. 4. [facility] Subjective: Patient sitting on couch coloring same picture over and over again with different colors on top of each other. She is irritable and insulting to MD. She insists she shouldn't be here and isn't get the right care. MD told her she has PRN meds for agitation that might help her calm down, but patient said, "well I'm not going to take any meds." Objective: Vital Signs Temp Pulse Resp BP Pulse Ox 36.9 C 62 16 147/66 H 98 07/04/18 14:15 07/05/18 06:00 07/05/18 06:00 07/07/18 09:07 07/05/18 06:00 MSE: Affect: Irritable, hostile Mood: "Fine" TP: Tangential, perseverates on admission ("I'm not supposed to be here.") TC: Denies any SI/HI Insight/ Judgment: Poor - Time Spent With Patient Time Spent With Patient: 20" - Pending Discharge Pending Discharge Within 24 Hours: No Pending Discharge Within 48 Hours: No ICD10 Worksheet Patient Problems: Problems Problem Status Onset Manic bipolar I disorder Acute Suicidal ideation Acute Encounter for medical clearance for patient hold Acute
[2018-07-08] MEDS: OLANZapine DISINTEGR 5 MG TAB PO SCH (20:08)
[2018-07-09] MEDS: NICOTINE POLACRILEX 2 MG GUM B PRN ×3 (08:27→20:44)
[2018-07-09] MEDS: LISINOPRIL 10 MG TAB PO SCH (08:27)
--- NOTE | 2018-07-09 13:31 | SOAPPROG ---
SOAP Progress Note Assessment/Plan: Assessment: Plan: 07/06/18 15:25 Mood/psychosis: Remains agitated, verbally threatening, disruptive to milieu. Will continue to offer PO Zyprexa and IM if she requests it. Will place on [facility] and consider involuntary med request though she has responded well in the past to only a few doses of medication with marked improvement in behaviors. 07/09/18 13:36 Mood/psychosis: Much calmer, less labile. Thought content unchanged in character, though less intense. I/J remains very poor. Remains gravely disabled. I discussed with her at length the need for psychotropic medications with the goal being improved mood stabilization, decreased irritability, and decreased intensity of intrusive ideations. She states she will take 1mg of Zyprexa. I inform her that the lowest we can go on that is 2.5mg. SHe states she will think about it. Subjective: Pt seen, discussed with staff. Sitting calmly at table in day room all morning. I attempted to engage her in a conversation re: meds. She continues to perseverate in past treatments and state she is allergic to all psychotropic meds or that they are "toxic" to her. Relates this to her "Lupus". Much less irritable. Did not require any prn's or Emeds over the weekend. States she is unwilling to take any voluntary meds at this point including the lisinopril. Objective: Vital Signs Temp Pulse Resp BP Pulse Ox 36.9 C 62 16 147/66 H 98 07/04/18 14:15 07/05/18 06:00 07/05/18 06:00 07/07/18 09:07 07/05/18 06:00 MSE: Poorly groomed, calm, coop. Sitting at table with breakfast tray in front of her at 1145. Tray has multiple cups, cartons, and other drink containers. SPeech is rapid, pressured. Affect is euthymic, stable, approp. Mood is "fine." TP is perseverative, tangential at times, linear at others. TC reveals continued grandiose and possibly paranoid, and somatic ideations. - Time Spent With Patient Time Spent With Patient: 25" ICD10 Worksheet Patient Problems: Problems Problem Status Onset Manic bipolar I disorder Acute Suicidal ideation Acute Encounter for medical clearance for patient hold Acute
[2018-07-09] MEDS: OLANZapine DISINTEGR 5 MG TAB PO SCH (20:44)
[2018-07-10] MEDS: LISINOPRIL 10 MG TAB PO SCH (08:40)
--- NOTE | 2018-07-10 14:12 | SOAPPROG ---
SOAP Progress Note Assessment/Plan: Assessment: Plan: 07/06/18 15:25 Mood/psychosis: Remains agitated, verbally threatening, disruptive to milieu. Will continue to offer PO Zyprexa and IM if she requests it. Will place on [facility] and consider involuntary med request though she has responded well in the past to only a few doses of medication with marked improvement in behaviors. 07/09/18 13:36 Mood/psychosis: Much calmer, less labile. Thought content unchanged in character, though less intense. I/J remains very poor. Remains gravely disabled. I discussed with her at length the need for psychotropic medications with the goal being improved mood stabilization, decreased irritability, and decreased intensity of intrusive ideations. She states she will take 1mg of Zyprexa. I inform her that the lowest we can go on that is 2.5mg. SHe states she will think about it. 07/10/18 14:19 Mood/psychosis: No change. Insight and judgement remain poor. [facility]. Submitted petition for involuntary meds. Subjective: Pt seen, discussed with staff. Remains irritable, antagonistic to staff and fellow patients. Refuses all meds including low dose of Zyprexa. Attempted again to discuss her treatment plan and meds and she talks over me, refusing to participate meaningfully. Grooming poor, sleep <4 hours. Objective: Vital Signs Temp Pulse Resp BP Pulse Ox 36.9 C 62 16 147/66 H 98 07/04/18 14:15 07/05/18 06:00 07/05/18 06:00 07/07/18 09:07 07/05/18 06:00 MSE: Poorly groomed, sitting at usual table in day room with numerous food and beverage containers in front of her. She is writing in journal. Acknowledges me though insists on recounting familiar stories and searching for drawings or lists in her journals. Affect is expansive. Mood is "good." TP is tangential. TC reveals continued paranoid and somatic delusions. - Time Spent With Patient Time Spent With Patient: 15" ICD10 Worksheet Patient Problems: Problems Problem Status Onset Manic bipolar I disorder Acute Suicidal ideation Acute Encounter for medical clearance for patient hold Acute
--- NOTE | 2018-07-10 14:52 | ASMTCMCOM ---
CM Note CM Note Notes: Pt. stated she was too focused on her drawing this morning to notice who was talking to her. Pt. stated she didn't need to talk to CC since she spoke with CC last night. Pt. stated she would like a [facility]HW to start an outpatient substance support program because he lead such a great group. Pt. stated she doesn't want to take psychotropics but earlier in the day stated she was willing to take Zyprexa. Pt. stated she is willing to consider possibly moving to a hospice facility. Pt. stated she has been having trouble communicating with staff due to being so scared and feeling vulnerable while on the unit. Staff report pt. sleeping 6.5 hours and refusing all of her medications. Date Signed: 07/10/2018 02:51 PM Electronically Signed By:Danna Lynne
[2018-07-10] MEDS: OLANZapine DISINTEGR 5 MG TAB PO SCH (21:50)
[2018-07-11] MEDS: LISINOPRIL 10 MG TAB PO SCH (07:25)
[2018-07-11] MEDS ORDERED: OLANZapine DISINTEGR 10 MG TAB PO PRN (10:40)
--- NOTE | 2018-07-11 12:49 | ASMTCMCOM ---
CM Note CM Note Notes: met with pt who presents as continued aggitation with disorganized thought and various unproductive goal ideation, ie; trying to publish a book, wants to talk to someone about group outlines etc. She was unable to focus on treatment questions denies si is continuing medication non compliant no changes. Pt info was sent to [facility] appointment confirmation pending tx stabilization Date Signed: 07/11/2018 12:48 PM Electronically Signed By:Yokasta Montenegro
[2018-07-11] MEDS: NICOTINE POLACRILEX 2 MG GUM B PRN ×2 (13:04→18:58)
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
[2018-07-11] MEDS: OLANZapine DISINTEGR 5 MG TAB PO SCH ×2 (19:10→19:14)
[2018-07-12] MEDS: LISINOPRIL 10 MG TAB PO SCH (08:08)
--- NOTE | 2018-07-12 12:56 | SOAPPROG ---
SOAP Progress Note Assessment/Plan: Assessment: Plan: 07/06/18 15:25 Mood/psychosis: Remains agitated, verbally threatening, disruptive to milieu. Will continue to offer PO Zyprexa and IM if she requests it. Will place on [facility] and consider involuntary med request though she has responded well in the past to only a few doses of medication with marked improvement in behaviors. 07/09/18 13:36 Mood/psychosis: Much calmer, less labile. Thought content unchanged in character, though less intense. I/J remains very poor. Remains gravely disabled. I discussed with her at length the need for psychotropic medications with the goal being improved mood stabilization, decreased irritability, and decreased intensity of intrusive ideations. She states she will take 1mg of Zyprexa. I inform her that the lowest we can go on that is 2.5mg. SHe states she will think about it. 07/10/18 14:19 Mood/psychosis: No change. Insight and judgement remain poor. [facility]. Submitted petition for involuntary meds. 07/11/18 14:58 Mood/psychosis: No change. Petition sent for involuntary meds. [facility]. 07/12/18 12:58 Mood/psychosis: No change. Remains non-compliant with treatment plan, gravely disabled. [facility]. Await hearing scheduled for 07/23/18. Subjective: Pt seen, discussed with staff. Remains hostile, paranoid. Unwilling to discuss meds. "Just waiting for court." Calmer in milieu, less antagonism. Likes to sit in day room and watch interactions taking notes in her journals. Continues to refuse all meds including antihypertensives. Objective: Vital Signs Temp Pulse Resp BP Pulse Ox 36.5 C 70 16 128/68 H 94 07/12/18 06:00 07/12/18 06:00 07/12/18 06:00 07/12/18 06:00 07/12/18 06:00 MSE: Calm, though uncoop. and hostile when approached. Affect is irritable, constricted, stable. Mood is "bad." TP perseverative, tangential. TC reveals continued paranoid, grandiose and somatic delusions. - Time Spent With Patient Time Spent With Patient: 15" ICD10 Worksheet Patient Problems: Problems Problem Status Onset Manic bipolar I disorder Acute Suicidal ideation Acute Encounter for medical clearance for patient hold Acute
[2018-07-12] MEDS: NICOTINE POLACRILEX 2 MG GUM B PRN ×2 (13:12→18:53)
[2018-07-12] MEDS: OLANZapine DISINTEGR 5 MG TAB PO SCH (19:54)
[2018-07-13] MEDS: LISINOPRIL 10 MG TAB PO SCH (07:37)
--- NOTE | 2018-07-13 11:15 | ASMTCMCOM ---
CM Note CM Note Notes: Pt has made little change since admission. Continues to refuse all medications, speech pressured, aggitation. She has updated Court Date for 06/16 anticipated DC planning after that hearing Date Signed: 07/13/2018 11:15 AM Electronically Signed By:Yokasta Montenegro
--- NOTE | 2018-07-13 12:14 | SOAPPROG ---
SOAP Progress Note Assessment/Plan: Assessment: Plan: 07/06/18 15:25 Mood/psychosis: Remains agitated, verbally threatening, disruptive to milieu. Will continue to offer PO Zyprexa and IM if she requests it. Will place on ST and consider involuntary med request though she has responded well in the past to only a few doses of medication with marked improvement in behaviors. 07/09/18 13:36 Mood/psychosis: Much calmer, less labile. Thought content unchanged in character, though less intense. I/J remains very poor. Remains gravely disabled. I discussed with her at length the need for psychotropic medications with the goal being improved mood stabilization, decreased irritability, and decreased intensity of intrusive ideations. She states she will take 1mg of Zyprexa. I inform her that the lowest we can go on that is 2.5mg. SHe states she will think about it. 07/10/18 14:19 Mood/psychosis: No change. Insight and judgement remain poor. [facility]. Submitted petition for involuntary meds. 07/11/18 14:58 Mood/psychosis: No change. Petition sent for involuntary meds. [facility]. 07/12/18 12:58 Mood/psychosis: No change. Remains non-compliant with treatment plan, gravely disabled. [facility]. Await hearing scheduled for 07/23/18. 07/13/18 12:14 Mood/psychosis: No change. Remains gravely disabled. [facility]. Subjective: Pt seen, discussed with staff, interviewed in Treatment Team meeting. She continues to speak in a pressured stream of consciousness, not allowing anyone to interject of ask questions. She continues to refuse all meds. She states she doesn't need the lisinopril because her BP is "perfect." States, "Anyone on earth would be jealous of my blood pressure." Not accepting of my feedback that her BP is actually still elevated. Becomes more agitated as interview proceeds requiring termination. Objective: Vital Signs Temp Pulse Resp BP Pulse Ox 36.6 C 64 16 122/64 H 97 07/13/18 06:00 07/13/18 06:00 07/13/18 06:00 07/13/18 06:00 07/13/18 06:00 - Time Spent With Patient Time Spent With Patient: 25" ICD10 Worksheet Patient Problems: Problems Problem Status Onset Manic bipolar I disorder Acute Suicidal ideation Acute Encounter for medical clearance for patient hold Acute
[2018-07-13] MEDS: OLANZapine DISINTEGR 5 MG TAB PO SCH (20:07)
[2018-07-14] MEDS: LISINOPRIL 10 MG TAB PO SCH (10:24)
--- NOTE | 2018-07-14 17:06 | SOAPPROG ---
SOAP Progress Note Assessment/Plan: Assessment: Per Dr. Hollis's note: 07/09/18 13:36 Mood/psychosis: Much calmer, less labile. Thought content unchanged in character, though less intense. I/J remains very poor. Remains gravely disabled. I discussed with her at length the need for psychotropic medications with the goal being improved mood stabilization, decreased irritability, and decreased intensity of intrusive ideations. She states she will take 1mg of Zyprexa. I inform her that the lowest we can go on that is 2.5mg. SHe states she will think about it. 07/10/18 14:19 Mood/psychosis: No change. Insight and judgement remain poor. [facility]. Submitted petition for involuntary meds. 07/11/18 14:58 Mood/psychosis: No change. Petition sent for involuntary meds. [facility]. 07/12/18 12:58 Mood/psychosis: No change. Remains non-compliant with treatment plan, gravely disabled. [facility]. Await hearing scheduled for 07/23/18. 07/13/18 12:14 Mood/psychosis: No change. Remains gravely disabled. [facility]. Current Plan: 07/14/18 17:02 1. Patient remains gravely disabled d/t psychotic disorder. She is refusing all medications, including her BP meds. 2. Patient has hearing scheduled next week for [facility]. Subjective: Patient continues to refuse all meds, including her BP meds. She insists she doesn't have HTN, even though her BP is elevated. She insists there's is "nothing wrong" with her mentally, though she c/o "organs and spine are out of place" and wants to see a chiropractor. Objective: Vital Signs Temp Pulse Resp BP Pulse Ox 36.8 C 65 16 142/64 H 97 07/14/18 06:00 07/14/18 06:00 07/14/18 06:00 07/14/18 06:00 07/14/18 06:00 MSE: Affect: Irritable Mood: Angry TP: Disorganized, illogical TC: Denies any SI/HI, delusional, paranoid Insight/Judgment: Impaired - Time Spent With Patient Time Spent With Patient: 15" - Pending Discharge Pending Discharge Within 24 Hours: No Pending Discharge Within 48 Hours: No ICD10 Worksheet Patient Problems: Problems Problem Status Onset Manic bipolar I disorder Acute Suicidal ideation Acute Encounter for medical clearance for patient hold Acute
[2018-07-14] MEDS: OLANZapine DISINTEGR 5 MG TAB PO SCH (20:38)
[2018-07-15 09:30] LABS: PLATELET COUNT 342 10^3/uL (150-400)
[2018-07-15] MEDS: LISINOPRIL 10 MG TAB PO SCH (10:58)
--- NOTE | 2018-07-15 17:06 | SOAPPROG ---
SOAP Progress Note Assessment/Plan: Assessment: Per Dr. Hollis's note: 07/09/18 13:36 Mood/psychosis: Much calmer, less labile. Thought content unchanged in character, though less intense. I/J remains very poor. Remains gravely disabled. I discussed with her at length the need for psychotropic medications with the goal being improved mood stabilization, decreased irritability, and decreased intensity of intrusive ideations. She states she will take 1mg of Zyprexa. I inform her that the lowest we can go on that is 2.5mg. SHe states she will think about it. 07/10/18 14:19 Mood/psychosis: No change. Insight and judgement remain poor. [facility]. Submitted petition for involuntary meds. 07/11/18 14:58 Mood/psychosis: No change. Petition sent for involuntary meds. [facility]. 07/12/18 12:58 Mood/psychosis: No change. Remains non-compliant with treatment plan, gravely disabled. [facility]. Await hearing scheduled for 07/23/18. 07/13/18 12:14 Mood/psychosis: No change. Remains gravely disabled. [facility]. Current Plan: 07/14/18 17:02 1. Patient remains gravely disabled d/t psychotic disorder. She is refusing all medications, including her BP meds. 2. Patient has hearing scheduled next week for [facility]. 07/15/18 17:03 1. Still refusing all meds. BP was down this AM to 116/70. 2. Still irritable, labile, argumentative, uncooperative. 3. Court hearing on Monday. Subjective: Patient sitting at table coloring and drawing. She is complaining about being treated "like a 1 yo." She slept 6 hrs last night and is eating between 80-100% of meals. Her BP this AM was 116/70, but has been elevated every other day this week. She is still refusing all meds. Objective: Vital Signs Temp Pulse Resp BP Pulse Ox 36.4 C 65 16 116/70 97 07/15/18 06:58 07/15/18 06:58 07/15/18 06:58 07/15/18 06:00 07/15/18 06:58 Laboratory Results 07/15/18 06:45 07/15/18 06:45 MSE: Affect: Irritable Mood: Labile TP: Tangential, illogical TC: Denies any SI/HI Insight/Judgment: Poor - Time Spent With Patient Time Spent With Patient: 15" - Pending Discharge Pending Discharge Within 24 Hours: No Pending Discharge Within 48 Hours: No ICD10 Worksheet Patient Problems: Problems Problem Status Onset Manic bipolar I disorder Acute Suicidal ideation Acute Encounter for medical clearance for patient hold Acute
[2018-07-15] MEDS: OLANZapine DISINTEGR 5 MG TAB PO SCH (22:14)
[2018-07-16] MEDS: LISINOPRIL 10 MG TAB PO SCH (08:23)
--- NOTE | 2018-07-16 16:11 | SOAPPROG ---
SOAP Progress Note Assessment/Plan: Assessment: Plan: 07/06/18 15:25 Mood/psychosis: Remains agitated, verbally threatening, disruptive to milieu. Will continue to offer PO Zyprexa and IM if she requests it. Will place on [facility] and consider involuntary med request though she has responded well in the past to only a few doses of medication with marked improvement in behaviors. 07/09/18 13:36 Mood/psychosis: Much calmer, less labile. Thought content unchanged in character, though less intense. I/J remains very poor. Remains gravely disabled. I discussed with her at length the need for psychotropic medications with the goal being improved mood stabilization, decreased irritability, and decreased intensity of intrusive ideations. She states she will take 1mg of Zyprexa. I inform her that the lowest we can go on that is 2.5mg. SHe states she will think about it. 07/10/18 14:19 Mood/psychosis: No change. Insight and judgement remain poor. [facility]. Submitted petition for involuntary meds. 07/11/18 14:58 Mood/psychosis: No change. Petition sent for involuntary meds. [facility]. 07/12/18 12:58 Mood/psychosis: No change. Remains non-compliant with treatment plan, gravely disabled. [facility]. Await hearing scheduled for 07/23/18. 07/13/18 12:14 Mood/psychosis: No change. Remains gravely disabled. [facility]. 07/16/18 16:12 Mood/psychosis: No change. Remains gravely disabled, hostile. Unable to participate in reasonable discussion of care. Hearing tomorrow for [facility]. Subjective: Pt seen, discussed with staff, chart reviewed. I attempted to interview her this afternoon and she quickly became agitated, yelling and accusing me of "torturing" her by "ordering the police to shackle me." I assured her that I have no control over the [facility]'s Department's policies, but she went on, causing me to terminate interview. She continues to sleep poorly, only four hours last night. Argumentative with staff, intrusive, requiring redirection. She continues to refuse all meds. Objective: Vital Signs Temp Pulse Resp BP Pulse Ox 36.4 C 61 16 128/60 H 97 07/16/18 06:00 07/16/18 06:00 07/16/18 06:00 07/16/18 06:00 07/16/18 06:00 Laboratory Results 07/15/18 06:45 07/15/18 06:45 MSE: Hostile, uncooperative. Speech is loud, pressured. Affect is irritable, hostile. Mood is "terrible." TP is tangential. TC reveals preoccupation with paranoid and somatic delusions. BP remains elevated. - Time Spent With Patient Time Spent With Patient: 15" ICD10 Worksheet Patient Problems: Problems Problem Status Onset Manic bipolar I disorder Acute Suicidal ideation Acute Encounter for medical clearance for patient hold Acute
[2018-07-16] MEDS: OLANZapine DISINTEGR 5 MG TAB PO SCH (20:44)
[2018-07-17] MEDS: LISINOPRIL 10 MG TAB PO SCH ×2 (08:31→08:41)
[2018-07-17] MEDS ORDERED: OLANZapine 5 MG TAB PO PRN (11:20)
[2018-07-17] MEDS ORDERED: OLANZapine 2.5 MG TAB PO SCH (21:00)
[2018-07-18] MEDS: LISINOPRIL 10 MG TAB PO SCH (08:01)
--- NOTE | 2018-07-18 13:01 | ASMTCMCOM ---
CM Note CM Note Notes: Client remains on the unit, sometimes by herself and other times with her peers. Client recently started taking medicaitons. Client has slightly changed since previous days. CC is trying to get her Intake with [facility] rescheduled, waiting to hear back.* Date Signed: 07/18/2018 01:01 PM Electronically Signed By:Alonzo Ward
[2018-07-18] MEDS ORDERED: OLANZapine 10 MG/2 ML VIAL IM PRN (14:51)
--- NOTE | 2018-07-18 15:02 | SOAPPROG ---
SOAP Progress Note Assessment/Plan: Assessment: Plan: 07/06/18 15:25 Mood/psychosis: Remains agitated, verbally threatening, disruptive to milieu. Will continue to offer PO Zyprexa and IM if she requests it. Will place on [facility] and consider involuntary med request though she has responded well in the past to only a few doses of medication with marked improvement in behaviors. 07/09/18 13:36 Mood/psychosis: Much calmer, less labile. Thought content unchanged in character, though less intense. I/J remains very poor. Remains gravely disabled. I discussed with her at length the need for psychotropic medications with the goal being improved mood stabilization, decreased irritability, and decreased intensity of intrusive ideations. She states she will take 1mg of Zyprexa. I inform her that the lowest we can go on that is 2.5mg. SHe states she will think about it. 07/10/18 14:19 Mood/psychosis: No change. Insight and judgement remain poor. [facility]. Submitted petition for involuntary meds. 07/11/18 14:58 Mood/psychosis: No change. Petition sent for involuntary meds. [facility]. 07/12/18 12:58 Mood/psychosis: No change. Remains non-compliant with treatment plan, gravely disabled. [facility]. Await hearing scheduled for 07/23/18. 07/13/18 12:14 Mood/psychosis: No change. Remains gravely disabled. [facility]. 07/16/18 16:12 Mood/psychosis: No change. Remains gravely disabled, hostile. Unable to participate in reasonable discussion of care. Hearing tomorrow for [facility]. 07/18/18 14:57 Mood/psychosis: No change. Will begin involuntary medications. I discussed this at length with patient in regards to her preferences. She states she wants to try Abilify. The risks, benefits and alternatives of this are reviewed with her and she asks appropriate questions. Will start at 5mg daily. Subjective: LATE ENTRY FOR 07/17/18 Pt seen, discussed with staff. Interviewed on unit prior to going to court. Seen in court x 90" for involuntary medication hearing. She continues to present as disorganized, pressured, irritable, labile, paranoid. Court granted petition for involuntary meds. Pt was reasonably accepting of this. Objective: Vital Signs Temp Pulse Resp BP Pulse Ox 36.6 C 62 15 138/62 H 95 07/18/18 06:00 07/18/18 06:00 07/18/18 06:00 07/18/18 06:00 07/18/18 06:00 Laboratory Results 07/15/18 06:45 07/15/18 06:45 MSE: Activated, irritable, hostile. Affect is labile, irritable. Mood is "fine." TP is tangential with some perseveration on familiar delusional themes. TC reveals continued grandiose, paranoid and somatic delusions. - Time Spent With Patient Time Spent With Patient: 55" ICD10 Worksheet Patient Problems: Problems Problem Status Onset Manic bipolar I disorder Acute Suicidal ideation Acute Encounter for medical clearance for patient hold Acute
[2018-07-18] MEDS: ARIPiprazole 5 MG TAB PO SCH (15:39)
--- NOTE | 2018-07-18 16:29 | SOAPPROG ---
SOAP Progress Note Assessment/Plan: Assessment: Plan: 07/06/18 15:25 Mood/psychosis: Remains agitated, verbally threatening, disruptive to milieu. Will continue to offer PO Zyprexa and IM if she requests it. Will place on [facility] and consider involuntary med request though she has responded well in the past to only a few doses of medication with marked improvement in behaviors. 07/09/18 13:36 Mood/psychosis: Much calmer, less labile. Thought content unchanged in character, though less intense. I/J remains very poor. Remains gravely disabled. I discussed with her at length the need for psychotropic medications with the goal being improved mood stabilization, decreased irritability, and decreased intensity of intrusive ideations. She states she will take 1mg of Zyprexa. I inform her that the lowest we can go on that is 2.5mg. SHe states she will think about it. 07/10/18 14:19 Mood/psychosis: No change. Insight and judgement remain poor. [facility]. Submitted petition for involuntary meds. 07/11/18 14:58 Mood/psychosis: No change. Petition sent for involuntary meds. [facility]. 07/12/18 12:58 Mood/psychosis: No change. Remains non-compliant with treatment plan, gravely disabled. [facility]. Await hearing scheduled for 07/23/18. 07/13/18 12:14 Mood/psychosis: No change. Remains gravely disabled. [facility]. 07/16/18 16:12 Mood/psychosis: No change. Remains gravely disabled, hostile. Unable to participate in reasonable discussion of care. Hearing tomorrow for [facility]. 07/18/18 14:57 Mood/psychosis: No change. Will begin involuntary medications. I discussed this at length with patient in regards to her preferences. She states she wants to try Abilify. The risks, benefits and alternatives of this are reviewed with her and she asks appropriate questions. Will start at 5mg daily. 07/18/18 16:30 Mood/psychosis: Notable improvement after one dose of Zyprexa. Will change to Abilify at pt request, start at 5mg. The risks, benefits and alternatives of this are reviewed. Subjective: Pt seen, discussed with staff. Pleasant and cooperative. Seems to have calmed down significantly. She is agreeable now to "whatever you recommend." She states, "I knew I would have to take meds. I just had to do what I had to do." She did take the low dose of Zyprexa last night and slept 5.5 hours. She notes "major changes in my bowels" after one dose of Zyprexa, though cannot describe what this is. She repeats several times that she had "major bowel issues with meds in the past." Objective: Vital Signs Temp Pulse Resp BP Pulse Ox 36.6 C 62 15 138/62 H 95 07/18/18 06:00 07/18/18 06:00 07/18/18 06:00 07/18/18 06:00 07/18/18 06:00 Laboratory Results 07/15/18 06:45 07/15/18 06:45 MSE: Calm, coop. Speech remains pressured, though more easily interrupted. Affect is bright, smiling, perhaps slightly elevated. Mood is "good. TP more linear. TC reveals no mention of paranoid thoughts. - Time Spent With Patient Time Spent With Patient: 25" ICD10 Worksheet Patient Problems: Problems Problem Status Onset Manic bipolar I disorder Acute Suicidal ideation Acute Encounter for medical clearance for patient hold Acute
[2018-07-19] MEDS: ARIPiprazole 5 MG TAB PO SCH (11:10)
[2018-07-19] MEDS: LISINOPRIL 10 MG TAB PO SCH (11:18)
--- NOTE | 2018-07-19 16:00 | SOAPPROG ---
SOAP Progress Note Assessment/Plan: Assessment: Plan: 07/06/18 15:25 Mood/psychosis: Remains agitated, verbally threatening, disruptive to milieu. Will continue to offer PO Zyprexa and IM if she requests it. Will place on [facility] and consider involuntary med request though she has responded well in the past to only a few doses of medication with marked improvement in behaviors. 07/09/18 13:36 Mood/psychosis: Much calmer, less labile. Thought content unchanged in character, though less intense. I/J remains very poor. Remains gravely disabled. I discussed with her at length the need for psychotropic medications with the goal being improved mood stabilization, decreased irritability, and decreased intensity of intrusive ideations. She states she will take 1mg of Zyprexa. I inform her that the lowest we can go on that is 2.5mg. SHe states she will think about it. 07/10/18 14:19 Mood/psychosis: No change. Insight and judgement remain poor. [facility]. Submitted petition for involuntary meds. 07/11/18 14:58 Mood/psychosis: No change. Petition sent for involuntary meds. [facility]. 07/12/18 12:58 Mood/psychosis: No change. Remains non-compliant with treatment plan, gravely disabled. [facility]. Await hearing scheduled for 07/23/18. 07/13/18 12:14 Mood/psychosis: No change. Remains gravely disabled. [facility]. 07/16/18 16:12 Mood/psychosis: No change. Remains gravely disabled, hostile. Unable to participate in reasonable discussion of care. Hearing tomorrow for [facility]. 07/18/18 14:57 Mood/psychosis: No change. Will begin involuntary medications. I discussed this at length with patient in regards to her preferences. She states she wants to try Abilify. The risks, benefits and alternatives of this are reviewed with her and she asks appropriate questions. Will start at 5mg daily. 07/18/18 16:30 Mood/psychosis: Notable improvement after one dose of Zyprexa. Will change to Abilify at pt request, start at 5mg. The risks, benefits and alternatives of this are reviewed. 07/19/18 16:01 Mood/psychosis: Continued improvement. Tolerating Abilify well. Subjective: Pt seen, discussed with staff. Reports feeling "a lot better." She states she is "very sorry for acting out so much before." Reiterates her desire to be compliant with treatment including following any outpatient recommendations. She states she went to [facility]'s recently and was told she made too much money and was not eligible for treatment there. She has been compliant with meds. No SE' s noted. Objective: Vital Signs Temp Pulse Resp BP Pulse Ox 36.6 C 62 15 138/62 H 95 07/18/18 06:00 07/18/18 06:00 07/18/18 06:00 07/18/18 06:00 07/18/18 06:00 Laboratory Results 07/15/18 06:45 07/15/18 06:45 MSE: Calmer, though still a bit activated. Remains pressured, very difficult to terminate conversation despite walking away and closing my office door. Affect is bright, smiling, approp. Mood is "good." TP is linear at times, but wanders. TC reveals less grandiosity, no appreciable paranoia. - Time Spent With Patient Time Spent With Patient: 25" ICD10 Worksheet Patient Problems: Problems Problem Status Onset Manic bipolar I disorder Acute Suicidal ideation Acute Encounter for medical clearance for patient hold Acute
[2018-07-20] MEDS: LISINOPRIL 10 MG TAB PO SCH ×3 (08:28→08:56)
[2018-07-20] MEDS: ARIPiprazole 5 MG TAB PO SCH ×2 (08:28→08:52)
--- NOTE | 2018-07-20 13:50 | ASMTCMCOM ---
CM Note CM Note Notes: The patient participated in clinical treatment team rounds. She was engaged and appropriate. According to [facility] staff, she is returning to baseline functioning including willingness and motivation toward treatment and "smiling" on the unit. The patient is refusing lisinopril. She reported several goals for progress with outpatient care including becoming social; the patient plans to join a mormonism choir or become involved with the mormonism in general and seeking a degree/auditing classes. The patient also reported interest in following up medically with primary care. CC arranged for the patient to see Dr. John on July 31 @ 13:00 with [facility]. More details are posted in the patient's discharge checklist. Date Signed: 07/20/2018 01:33 PM Electronically Signed By:Naheed Smith
--- NOTE | 2018-07-20 14:16 | SOAPPROG ---
SOAP Progress Note Assessment/Plan: Assessment: Plan: 07/06/18 15:25 Mood/psychosis: Remains agitated, verbally threatening, disruptive to milieu. Will continue to offer PO Zyprexa and IM if she requests it. Will place on [facility] and consider involuntary med request though she has responded well in the past to only a few doses of medication with marked improvement in behaviors. 07/09/18 13:36 Mood/psychosis: Much calmer, less labile. Thought content unchanged in character, though less intense. I/J remains very poor. Remains gravely disabled. I discussed with her at length the need for psychotropic medications with the goal being improved mood stabilization, decreased irritability, and decreased intensity of intrusive ideations. She states she will take 1mg of Zyprexa. I inform her that the lowest we can go on that is 2.5mg. SHe states she will think about it. 07/10/18 14:19 Mood/psychosis: No change. Insight and judgement remain poor. [facility]. Submitted petition for involuntary meds. 07/11/18 14:58 Mood/psychosis: No change. Petition sent for involuntary meds. [facility]. 07/12/18 12:58 Mood/psychosis: No change. Remains non-compliant with treatment plan, gravely disabled. [facility]. Await hearing scheduled for 07/23/18. 07/13/18 12:14 Mood/psychosis: No change. Remains gravely disabled. [facility]. 07/16/18 16:12 Mood/psychosis: No change. Remains gravely disabled, hostile. Unable to participate in reasonable discussion of care. Hearing tomorrow for [facility]. 07/18/18 14:57 Mood/psychosis: No change. Will begin involuntary medications. I discussed this at length with patient in regards to her preferences. She states she wants to try Abilify. The risks, benefits and alternatives of this are reviewed with her and she asks appropriate questions. Will start at 5mg daily. 07/18/18 16:30 Mood/psychosis: Notable improvement after one dose of Zyprexa. Will change to Abilify at pt request, start at 5mg. The risks, benefits and alternatives of this are reviewed. 07/19/18 16:01 Mood/psychosis: Continued improvement. Tolerating Abilify well. 07/20/18 14:16 Mood/psychosis: Mood is brighter. Remains delusional and unable to objectively evaluate outpatient options. Will CCM. Subjective: Pt seen, discussed with staff, interviewed alone and in Treatment Team meeting. She continues to perseverate on perceived mistreatment by [facility] in past when she was told "there primary mission was to the indigent." She states she has "too much insurance" (Medicare) and wants "good private care." We attempted to redirect her from this idea numerous times to no avail. She comes up to me twice after Team meeting to tell me she is definitely not going to [facility] due to "uncomfortable environment" and "far too much conflict." Remains compliant with meds. No evidence of side effects. Objective: Vital Signs Temp Pulse Resp BP Pulse Ox 36.4 C 58 L 16 144/68 H 98 07/20/18 06:00 07/20/18 06:00 07/20/18 06:00 07/20/18 06:00 07/20/18 06:00 Laboratory Results 07/15/18 06:45 07/15/18 06:45 - Time Spent With Patient Time Spent With Patient: 25" ICD10 Worksheet Patient Problems: Problems Problem Status Onset Manic bipolar I disorder Acute Suicidal ideation Acute Encounter for medical clearance for patient hold Acute
[2018-07-21] MEDS: ARIPiprazole 5 MG TAB PO SCH (09:01)
[2018-07-21] MEDS: LISINOPRIL 10 MG TAB PO SCH (09:26)
--- NOTE | 2018-07-21 11:10 | ASMTCMCOM ---
CM Note CM Note Notes: Client contiunes to present as demanding (at times), loud, rude, but redirectable; however, she is making small amounts of progress compared to several days ago. Client denies any feelings of anxiety, depression, S/I or AVD. Client affect is labile at times (especailly during staff interactions). Client participated some groups, however not all. Date Signed: 07/21/2018 11:09 AM Electronically Signed By:Alonzo Ward
--- NOTE | 2018-07-21 17:16 | SOAPPROG ---
SOAP Progress Note Assessment/Plan: Assessment: Per Dr. Hollis's note: 07/18/18 16:30 Mood/psychosis: Notable improvement after one dose of Zyprexa. Will change to Abilify at pt request, start at 5mg. The risks, benefits and alternatives of this are reviewed. 07/19/18 16:01 Mood/psychosis: Continued improvement. Tolerating Abilify well. 07/20/18 14:16 Mood/psychosis: Mood is brighter. Remains delusional and unable to objectively evaluate outpatient options. Will CCM. Subjective: Pt seen, discussed with staff, interviewed alone and in Treatment Team meeting. She continues to perseverate on perceived mistreatment by [facility] in past when she was told "there primary mission was to the indigent." She states she has "too much insurance" (Medicare) and wants "good private care." We attempted to redirect her from this idea numerous times to no avail. She comes up to me twice after Team meeting to tell me she is definitely not going to [facility]'s due to "uncomfortable environment" and "far too much conflict." Remains compliant with meds. No evidence of side effects. PLAN: 07/21/18 17:16 1. Patient now on COM. Is taking Abilify at patient's request. 2. Patient less irritable, but still c/o mental health services in past. 3. Refused Lisinopril this AM. 4. [facility]/COM Subjective: Patient sitting in day area participating in group therapy. She has smile on face and greets MD by making a joke. She is calmer, less irritable, but can easily become obsessed about her legal issues and refuses follow up care with [facility]. Objective: Vital Signs Temp Pulse Resp BP Pulse Ox 36.8 C 68 16 106/57 L 98 07/21/18 05:21 07/21/18 05:21 07/21/18 05:21 07/21/18 05:21 07/21/18 05:21 Laboratory Results 07/15/18 06:45 07/15/18 06:45 MSE: Affect: Euthymic, less irritable Mood: "OK" TP: Tangential, perseverative at times TC: Denies any SI/HI, still delusional about follow up Insight/Judgment: Improving - Time Spent With Patient Time Spent With Patient: 15" - Pending Discharge Pending Discharge Within 24 Hours: No Pending Discharge Within 48 Hours: No ICD10 Worksheet Patient Problems: Problems Problem Status Onset Manic bipolar I disorder Acute Suicidal ideation Acute Encounter for medical clearance for patient hold Acute
[2018-07-22] MEDS: ARIPiprazole 5 MG TAB PO SCH (08:30)
[2018-07-22] MEDS: LISINOPRIL 10 MG TAB PO SCH (10:48)
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
[2018-07-23 06:28] VITALS: BP 138/68
[2018-07-23] MEDS: ARIPiprazole 5 MG TAB PO SCH (11:55)
[2018-07-23] MEDS: LISINOPRIL 10 MG TAB PO SCH (11:56)
--- NOTE | 2018-07-23 15:33 | SOAPPROG ---
SOAP Progress Note Assessment/Plan: Assessment: Plan: 07/06/18 15:25 Mood/psychosis: Remains agitated, verbally threatening, disruptive to milieu. Will continue to offer PO Zyprexa and IM if she requests it. Will place on [facility] and consider involuntary med request though she has responded well in the past to only a few doses of medication with marked improvement in behaviors. 07/09/18 13:36 Mood/psychosis: Much calmer, less labile. Thought content unchanged in character, though less intense. I/J remains very poor. Remains gravely disabled. I discussed with her at length the need for psychotropic medications with the goal being improved mood stabilization, decreased irritability, and decreased intensity of intrusive ideations. She states she will take 1mg of Zyprexa. I inform her that the lowest we can go on that is 2.5mg. SHe states she will think about it. 07/10/18 14:19 Mood/psychosis: No change. Insight and judgement remain poor. [facility]. Submitted petition for involuntary meds. 07/11/18 14:58 Mood/psychosis: No change. Petition sent for involuntary meds. [facility]. 07/12/18 12:58 Mood/psychosis: No change. Remains non-compliant with treatment plan, gravely disabled. [facility]. Await hearing scheduled for 07/23/18. 07/13/18 12:14 Mood/psychosis: No change. Remains gravely disabled. [facility]. 07/16/18 16:12 Mood/psychosis: No change. Remains gravely disabled, hostile. Unable to participate in reasonable discussion of care. Hearing tomorrow for [facility]. 07/18/18 14:57 Mood/psychosis: No change. Will begin involuntary medications. I discussed this at length with patient in regards to her preferences. She states she wants to try Abilify. The risks, benefits and alternatives of this are reviewed with her and she asks appropriate questions. Will start at 5mg daily. 07/18/18 16:30 Mood/psychosis: Notable improvement after one dose of Zyprexa. Will change to Abilify at pt request, start at 5mg. The risks, benefits and alternatives of this are reviewed. 07/19/18 16:01 Mood/psychosis: Continued improvement. Tolerating Abilify well. 07/20/18 14:16 Mood/psychosis: Mood is brighter. Remains delusional and unable to objectively evaluate outpatient options. Will CCM. 07/23/18 15:32 Mood/psychosis: Mood is stable. Paranoia persists, continues to interfere with d/c planning. Will await her decision as to her d/c plan and try to work with her. CCM. Subjective: Pt seen, discussed with staff, chart reviewed. Uneventful weekend. More social. Generally appropriate. Compliant with Abilify, but not lisinopril. Working diligently on d/c plan. Continues to refuse to go to [facility]HP's. Will not allow staff to help. Seems in part based in paranoia. Objective: Vital Signs Temp Pulse Resp BP Pulse Ox 36.3 C 62 15 138/68 H 97 07/23/18 06:00 07/23/18 06:00 07/23/18 06:00 07/23/18 06:00 07/23/18 06:00 Laboratory Results 07/15/18 06:45 07/15/18 06:45 MSE: Adequately groomed, coop. Affect is euthymic, stable, approp. Mood is "fine." TP generally linear. TC reveals continued paranoia. - Time Spent With Patient Time Spent With Patient: 15" ICD10 Worksheet Patient Problems: Problems Problem Status Onset Manic bipolar I disorder Acute Suicidal ideation Acute Encounter for medical clearance for patient hold Acute
== END 2018-07-23 18:15 | disposition home or self-care (01) | DRG 885 ==
LOC: BBEH 16:05
PROVIDERS: ADMIT Psychiatry & Neurology Psychiatry; ATTEND Psychiatry & Neurology Psychiatry
DX: F31.2 Bipolar disorder, current episode manic severe with psychotic features (principal); R45.851 Suicidal ideations; E11.9 Type 2 diabetes mellitus without complications; M32.9 Systemic lupus erythematosus, unspecified; E03.9 Hypothyroidism, unspecified; Z87.891 Personal history of nicotine dependence
CPT/HCPCS: G0480

== ENCOUNTER 2018-09-05 08:21 | Emergency (ER) | payer OTHER ==
--- NOTE | 2018-09-05 09:03 | EDPHY ---
H & P Stated Complaint: M1 - Personal History Current Tetanus/Diphtheria Vaccine: Unsure Current Tetanus Diphtheria and Acellular Pertussis (TDAP): Unsure - Medical/Surgical History Hx Asthma: No Hx Chronic Respiratory Disease: No Hx Diabetes: No Hx Cardiac Disease: Yes Hx Renal Disease: No Hx Cirrhosis: No Hx Alcoholism: No Hx HIV/AIDS: No Hx Splenectomy or Spleen Trauma: No Other PMH: Suzie, hypothyroid, HTN - Social History Smoking Status: Former smoker Time Seen by Provider: 09/05/18 08:53 HPI/ROS: CHIEF COMPLAINT: M1 HISTORY OF PRESENT ILLNESS: 73-year-old female history of bipolar 1 disorder, medication noncompliance, history of hospitalization at [facility], arrives on M1 hold from her home. Information obtained primarily from the M1 report as patient herself repeatedly asks if we can help her with suicide. Per the M1 report she called 911 to report saying that "something is coming through the air," was having difficulty differentiating reality from non reality. Patient does endorse suicidal ideation but has no plan, prefers that medical staff assist her with suicide. Denies hallucination. PRIMARY CARE PROVIDER: REVIEW OF SYSTEMS: 10 systems reviewed and negative with the exception of the elements mentioned in the history of present illness PAST MEDICAL & SURGICAL HISTORY: Bipolar disorder. Medication noncompliance. SOCIAL HISTORY: Denies acute alcohol or drug use PHYSICAL EXAM (Prior to examination, patient consented to physical exam, hands were washed and my usual and customary physical exam procedures followed) 1) GENERAL: Well-developed, well-nourished, alert and oriented. Appears to be in no acute distress. 2) HEAD: Normocephalic, atraumatic 3) HEENT: Pupils equal, round, reactive to light bilaterally. Sclera anicteric. 4) NECK: Full range of motion, no meningeal signs. 5) LUNGS: Clear auscultation bilaterally, no wheezes, no rhonchi, no retractions. 6) HEART: Regular rate and rhythm, no murmur, no heave, no gallop. 7) ABDOMEN: No guarding, no rebound, no focal tenderness, negative McBurney's, negative Huerta's, negative Rovsing's, negative peritoneal sign, 8) MUSCULOSKELETAL: Moving all extremities, no focal areas of tenderness, no obvious trauma. No peripheral edema or discoloration. 9) BACK: No CVA tenderness, no midline vertebral tenderness, no fluctuance, no step-off, no obvious trauma, no visual or palpable abnormality. 10) SKIN: No rash, no petechiae. 11) Psychiatric: Patient is oriented X 3, rapid , tangential, speech, flight of ideas. DIFFERENTIAL DIAGNOSIS: In no particular order including but not limited to acute psychosis, omar, medication noncompliance, suicidal ideation, homicidal ideation (Will,D Eve) Constitutional: Initial Vital Signs Temperature (C) 36.6 C 09/05/18 08:24 Heart Rate 89 09/05/18 08:24 Respiratory Rate 18 09/05/18 08:24 Blood Pressure 191/106 H 09/05/18 08:24 O2 Sat (%) 98 09/05/18 08:24 O2 Delivery Mode Room Air Allergies/Adverse Reactions: No Known Allergies Allergy (Verified 09/05/18 08:23) Home Medications: Medication Instructions Recorded ARIPiprazole [Abilify 5 mg (*)] 5 mg PO DAILY #30 tab 07/23/18 Lisinopril [Zestril 10 mg (*)] 10 mg PO DAILY #30 tab 07/23/18 Cephalexin [Keflex] 500 mg PO BID 7 Days cap 09/05/18 Medical Decision Making ED Course/Re-evaluation: 9:02 a.m.: Patient on M1 hold. Will obtain diagnostic studies and consult with mental health yard warehouse worker. Care of patient under supervision of secondary supervising physician Dr Drew with whom I discussed case. 11:12 a.m.: Patient noted to have bacteriuria, pyuria. Doubt urosepsis. Patient's urine will be cultured I am initiating Keflex antibiotic therapy. Given the patient's extensive psychiatric history and history of medication noncompliance, I think that her uti is less than likely the etiology of her acute psychiatric presenting signs and symptoms. 1:24 p.m.: Patient seen evaluated by Eren Costa, looking at [facility] which request EKG which will be ordered. Patient also noted to have systolic of 209 at this time. She notes history of hypertension, has been prescribed lisinopril which she has not taken her lisinopril in several weeks. She will be given dose of her lisinopril and further evaluated. 1:30 p.m.: Patient's vital signs were re-evaluated at this time without having being given her antihypertensive, systolic is 146 at this time. The patient adamantly declines her lisinopril. 2:30 p.m.: Patient accepted for transfer at [facility], accepting physician Dr. Rankin [facility] paperwork completed. Patient will not be able to be transferred until approximately 7-8 p.m.. 5:00 p.m.: Care turned over to Dr. Suzette Maria, patient awaiting transfer to [facility]. Patient given prescription for Keflex for transfer ( Cm Solis) 1700: I discussed the case with Brian Solis. The patient is scheduled for transfer. Patient is stable. (Suzette Maria S) - Data Points Laboratory Results: Laboratory Results 09/05/18 09:00 09/05/18 09:00 09/05/18 09/05/18 09/05/18 Unknown 09:00 09:00 WBC 7.43 10^3/uL 10^3/uL (3.80-9.50) RBC 4.84 10^6/uL 10^6/uL (4.18-5.33) Hgb 14.1 g/dL g/dL (12.6-16.3) Hct 42.0 % % (38.0-47.0) MCV 86.8 fL fL (81.5-99.8) MCH 29.1 pg pg (27.9-34.1) MCHC 33.6 g/dL g/dL (32.4-36.7) RDW 12.7 % % (11.5-15.2) Plt Count 337 10^3/uL 10^3/uL (150-400) MPV 9.6 fL fL (8.7-11.7) Neut % (Auto) 52.7 % % (39.3-74.2) Lymph % (Auto) 39.8 % % (15.0-45.0) [place] % (Auto) 5.5 % % (4.5-13.0) Eos % (Auto) 1.2 % % (0.6-7.6) Baso % (Auto) 0.5 % % (0.3-1.7) Nucleat RBC Rel Count 0.0 % % (0.0-0.2) Absolute Neuts (auto) 3.91 10^3/uL 10^3/uL (1.70-6.50) Absolute Lymphs (auto) 2.96 10^3/uL 10^3/uL (1.00-3.00) Absolute Monos (auto) 0.41 10^3/uL 10^3/uL (0.30-0.80) Absolute Eos (auto) 0.09 10^3/uL 10^3/uL (0.03-0.40) Absolute Basos (auto) 0.04 10^3/uL 10^3/uL (0.02-0.10) Absolute Nucleated RBC 0.00 10^3/uL 10^3/uL (0-0.01) Immature Gran % 0.3 % % (0.0-1.1) Immature Gran # 0.02 10^3/uL 10^3/uL (0.00-0.10) Sodium 140 mEq/L mEq/L (135-145) Potassium 4.0 mEq/L mEq/L (3.5-5.2) Chloride 105 mEq/L mEq/L (97-110) Carbon Dioxide 26 mEq/l mEq/l (22-31) Anion Gap 9 mEq/L mEq/L (6-14) BUN 15 mg/dL mg/dL (7-23) Creatinine 0.6 mg/dL mg/dL (0.6-1.0) Estimated GFR > 60 Glucose 120 mg/dL H mg/dL (70-100) Calcium 9.7 mg/dL mg/dL (8.5-10.4) Urine Color YELLOW Urine Appearance MODERATELY TURBID Urine pH 5.0 (5.0-7.5) Ur Specific [place] 1.020 (1.002-1.030) Urine Protein NEGATIVE (NEGATIVE) Urine Ketones NEGATIVE (NEGATIVE) Urine Blood NEGATIVE (NEGATIVE) Urine Nitrate NEGATIVE (NEGATIVE) Urine Bilirubin NEGATIVE (NEGATIVE) Urine Urobilinogen NEGATIVE EU EU (0.2-1.0) Ur Leukocyte Esterase 2+ H (NEGATIVE) Urine RBC 5-10 /hpf H /hpf (0-3) Urine WBC 25-50 /hpf H /hpf (0-3) Ur Epithelial Cells 1+ /lpf /lpf (NONE-1+) Urine Bacteria 4+ /hpf H /hpf (NONE SEEN) Urine Mucus 2+ /lpf H /lpf (NONE-1+) Urine Glucose NEGATIVE (NEGATIVE) Salicylates < 1.0 mg/dL L mg/dL (2.0-20.0) Urine Opiates Screen NEGATIVE (NEGATIVE) Acetaminophen < 10 mcg/mL L mcg/mL (10-30) Urine Barbiturates NEGATIVE (NEGATIVE) Ur Phencyclidine Scrn NEGATIVE (NEGATIVE) Ur Amphetamine Screen NEGATIVE (NEGATIVE) U Benzodiazepines Scrn NEGATIVE (NEGATIVE) Urine Cocaine Screen NEGATIVE (NEGATIVE) U Marijuana (THC) Screen NEGATIVE (NEGATIVE) Ethyl Alcohol < 10 mg/dL mg/dL (0-10) Medications Given: Discontinued Medications Cephalexin HCl (Keflex) 500 mg PO EDNOW ONE PRN Reason: Protocol Stop: 09/05/18 11:12 Last Admin: 09/05/18 11:33 Dose: 500 mg Lisinopril (Zestril) 10 mg PO EDNOW ONE Stop: 09/05/18 13:23 Last Admin: 09/05/18 13:34 Dose: Not Given Departure - Departure Disposition: Other Psych, Not [place] Clinical Impression: Acute psychosis, Omar, Noncompliance with medication regimen Urinary tract infection Qualifiers: Urinary tract infection type: acute cystitis Hematuria presence: with hematuria Qualified Code(s): N30.01 - Acute cystitis with hematuria Condition: Fair Referrals: Patient,NotPresent [Unknown] - As per Instructions Prescriptions: Cephalexin [Keflex] 500 mg PO BID 7 Days cap
[2018-09-05 09:27] LABS: PLATELET COUNT 337 10^3/uL (150-400)
[2018-09-05] MEDS ORDERED: CEPHALEXIN 500 MG CAP PO ONE ×2 (11:11→23:00)
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
[2018-09-05] MEDS ORDERED: LISINOPRIL 20 MG TAB PO ONE (13:22)
--- NOTE | 2018-09-05 14:11 | ASMTTCLDSP ---
TLC Discharge Disposition Disposition: Answers: Transfer Disposition Notes: Notes: Pt accepted for transfer admission to [facility] under Dr. Dominguez Strange. Discharge Concerns/Recommendations: Notes: In consultation with [facility] physician, Rajan Drew MD and on-call psychiatrist, Alfa Hollis MD, both concurred that pt appears to meet 27-65 criteria requiring psychiatric hospitalization as pt appears to be at risk of harm to self/gravely disabled due to a mental illness condition. Was patient given the Answers: Not applicable Inpatient Behavioral Health Prohibited Belongings List while in the ED? Type of Hold: Answers: M1/72-hour Hold Hold initiated by: Answers: Police For Transfers, Accepting [facility] Facility: For Transfers, Accepting Dr. Dominguez Strange Psychiatrist: For Transfers, Reason Acuity concerns on 3N Patient is Being Transferred: Date Signed: 09/05/2018 02:10 PM Electronically Signed By:Eren Chester
[2018-09-05 18:51] VITALS: BP 121/95
--- NOTE | 2018-09-06 10:47 | CPEKG ---
Test Reason : OPEN Blood Pressure : / mmHG Vent. Rate : 084 BPM Atrial Rate : 084 BPM P-R Int : 148 ms QRS Dur : 084 ms QT Int : 398 ms P-R-T Axes : 063 -06 077 degrees QTc Int : 471 ms Sinus rhythm Atrial premature complex Minimal ST depression, lateral leads significant artifact present Confirmed by Shanell Bhatt ([id number]) on 09/06/2018 10:46:17 AM Referred By: Confirmed By:Shanell Bhatt
== END 2018-09-05 19:25 ==
LOC: EEVIPCON 08:21
PROC: GZ11ZZZ Psychological Tests, Personality and Behavioral (ICD-10-PCS; principal; 2018-09-05)
DX: F23 Brief psychotic disorder (principal); F30.9 Manic episode, unspecified; N30.01 Acute cystitis with hematuria; Z91.14 Patient's other noncompliance with medication regimen
CPT/HCPCS: 80305; G0480